=== PATIENT | female | born 1945 | race Caucasian/White ===

== ENCOUNTER 2024-03-08 20:21 | Emergency (ER) | payer MEDICARE, SELFPAY ==
[2024-03-08] VITALS (11 sets, daily range): BP systolic 115–143; BP diastolic 61–95; PULSE 71–83; RESP 20; TEMP 35.7; O2SAT 96–97; BMI 17.7
--- NOTE | 2024-03-08 20:41 | ED.WEAKNESS ---
HPI - Weakness General Time Seen by Provider: 20:41 Date Seen: 03/08/24 Chief complaint: Weakness Stated complaint: UTI, vomiting Time Seen by Provider: 03/08/24 20:41 Source: patient and RN notes reviewed Mode of arrival: ambulatory Limitations: no limitations History of Present Illness HPI Narrative: Patient is a very pleasant 78-year-old female with metastatic ovarian cancer who comes to the [facility] with her 2 daughters for evaluation regarding weakness. Patient was diagnosed yesterday with a UTI and started on Bactrim today. Daughters note the onset of some confusion on SundayMarch 04 with suspected UTI but unable to have a doctor's visit or urine sample until recently. Unfortunately Edelmira had episodes of vomiting yesterday and today. No known fever. Patient agrees that she has had loose stools but no davida diarrhea. Has had decreased p.o. intake and has been sleeping quite a bit especially today. Family states they usually go see doctors in the [facility] system but wanted to skip the long wait in the waiting room and thus came to [facility]. Last night patient was noted to have had urinary frequency with little production. Two doses of antibiotic were taken today. At this time patient denies difficulty breathing sore throat runny nose except when she is eating or any other respiratory difficulties. Patient's daughter states that the ovarian cancer did not respond well to chemo and thus last chemo was in January of this year. They note that there has been reports of metastases to lungs possibly bladder. Related Data Allergies Allergy/AdvReac Type Severity Reaction Status Date / Time No Known Drug Allergies Allergy Verified 03/08/24 20:48 Review of Systems Status of ROS: Reports: 10 or more systems reviewed and unremarkable except as noted in History and below Const: Reports: fever, chills, fatigue and malaise ENMT: Reports: nasal discharge (When eating); Denies: throat pain or nasal congestion Cardio: Denies: chest pain or shortness of breath with exertion Resp: Denies: shortness of breath or cough GI: Reports: vomiting; Denies: abdominal pain or diarrhea : Denies: painful urination or urinary frequency Endo: Reports: fatigue PFSH PFSH Social History Smoking Status: Unknown if ever smoked Exam Narrative: Exam Narrative: Patient is cachectic in appearance very pleasant. Answers questions appropriately alert and oriented. Very pale. EOM is full. Lips are dry. Neck is supple. Heart with a regular rate and rhythm. Lungs are clear. Abdomen is with some slight tenderness in the suprapubic area. Lower extremities without edema. Pedal pulses are intact. Moving all extremities. Const: Vital Signs, click to edit/add: Vital Signs - 24 hr 03/08/24 20:28 03/08/24 21:02 03/08/24 21:16 Temperature 96.2 F L Pulse Rate Pulse Rate [Left P ulse Oximeter] 83 Respiratory Rate 20 20 Blood Pressure 123/95 H 124/66 Blood Pressure [Ri ght Upper Arm] 143/76 H Pulse Oximetry 97 Oxygen Delivery Me thod Room Air Room Air 03/08/24 21:54 03/08/24 21:55 03/08/24 22:00 Temperature Pulse Rate 73 72 71 Pulse Rate [Left P ulse Oximeter] Respiratory Rate Blood Pressure 126/63 Blood Pressure [Ri ght Upper Arm] Pulse Oximetry 96 96 96 Oxygen Delivery Me thod 03/08/24 22:01 03/08/24 22:33 03/08/24 22:34 Temperature Pulse Rate 71 80 78 Pulse Rate [Left P ulse Oximeter] Respiratory Rate Blood Pressure 115/61 130/69 Blood Pressure [Ri ght Upper Arm] Pulse Oximetry 96 96 96 Oxygen Delivery Me thod 03/08/24 23:01 03/08/24 23:32 Temperature Pulse Rate Pulse Rate [Left P ulse Oximeter] Respiratory Rate Blood Pressure 119/64 121/69 Blood Pressure [Ri ght Upper Arm] Pulse Oximetry Oxygen Delivery Me thod Documenting provider has reviewed patient's vital signs: yes Course Course ED Course: Differential diagnosis includes but is not limited to UTI, urinary retention, sepsis, pyelonephritis. Will give 1 L normal saline through the port. Family is checking ID and sensitivities of the urinalysis from earlier this week. Will check lactate, blood cultures, CBC, comprehensive panel, CRP. Reevaluation(s) Reevaluation #1: Patient received 1 L of normal saline. Her hemoglobin has been returned at 7.6. Unfortunately family has been challenged with getting into my chart for results of her urine culture me as well as previous hemoglobins. We did speak briefly about a blood transfusion given the hemoglobin and her significant fatigue. I do not find evidence of sepsis, acute abdomen or infection tonight. Reevaluation #2: Our hospitalist was able to obtain some records for me. It appears that previous hemoglobin in the [facility] system was 8.5 in December. It had gotten as low as 7.1 in November and then patient did have a transfusion at that time. Her urine had a urinalysis but no culture available at this time. This was obtained through the [facility] system. Patient did receive Rocephin 1 g IV. Patient was type and screened. After extensive discussion regarding risks benefits with family and patient they have elected to receive transfusion. Informed consent was obtain. Will give 1 unit of type specific blood in the hopes that this does help patient's energy. Daughters do talk about hospice consultation. Do feel that they would like UTI treated and that they would like a transfusion at this time. I did talk about possibility of other etiology of increasing fatigue and that is progression of the disease possibly metastases to brain but I do not feel that we should do further imaging as this is not a reversible problem. They appear to agree with me. Vital Signs Vital signs: Initial Vital Signs Temperature 96.2 F L 03/08/24 20:28 Temperature Source Temporal Artery Scan 03/08/24 20:28 Pulse Rate 83 03/08/24 20:28 Pulse Rhythm Regular 03/08/24 20:28 Pulse Strength 3+ Normal 03/08/24 20:28 Respiratory Rate 20 03/08/24 20:28 Blood Pressure 143/76 H 03/08/24 20:28 Blood Pressure Mean 98 03/08/24 20:28 Pulse Oximetry 97 03/08/24 20:28 Oxygen Delivery Method Room Air 03/08/24 20:28 Vital Signs Temperature 96.2 F L 03/08/24 20:28 Pulse Rate 83 03/08/24 20:28 Respiratory Rate 20 03/08/24 20:28 Blood Pressure 143/76 H 03/08/24 20:28 Pulse Oximetry 97 03/08/24 20:28 Oxygen Delivery Method Room Air 03/08/24 20:28 Temperature 98.8 F 03/09/24 05:06 Pulse Rate 79 03/09/24 05:06 Respiratory Rate 20 03/09/24 05:06 Blood Pressure 145/78 H 03/09/24 05:06 Pulse Oximetry 95 03/09/24 05:06 Oxygen Delivery Method Room Air 03/08/24 21:02 Medications Administered Medications: Discontinued Medications Generic Name Dose Route Start Last Admin Trade Name Felicia PRN Reason Stop Dose Admin Heparin Sodium (Porcine) 500 unit 03/09/24 05:11 03/09/24 05:13 Heparin 500 Unit/5 Ml Syringe IVF 500 unit FLUSHPRN PRN Administration Sodium Chloride 1,000 mls @ 1,000 mls/hr 03/08/24 21:01 03/08/24 23:08 0.9 % Sodium Chloride 1000 Ml IV 03/08/24 22:00 Infused .Q1H GEE Infusion Ceftriaxone Sodium 1 gm/ 100 mls @ 200 mls/hr 03/08/24 23:06 03/08/24 23:52 Sodium Chloride IVPB 03/08/24 23:07 Infused ONCE ONE Infusion Sodium Chloride 250 ml 03/08/24 23:42 03/09/24 03:24 0.9 % Sodium Chloride 250 Ml IV 03/09/24 23:59 250 ml ONCE PRN Administration MDM - Weakness MDM Narrative Medical decision making narrative: 1. UTI-no evidence of sepsis which what had worried family. White count is normal and lactate is negative. While patient has an elevated CRP this is most likely route related to her ovarian cancer with metastases. 1 g of IV Rocephin given. Will have family continue with the Bactrim. We did collect urine sample here. Bladder scan was negative for any urinary retention. 2. Anemia-patient has dropped from 8 point 3-7.6 since December. Although likely a chronic process, transfusion may help patient's energy level and thus after discussion with family we elected to give 1 unit of blood. We did talk about the risks and the fact that there may be another process ongoing contributing to the confusion. At this time I do not find evidence of infection with lung sounds that are reassuring, no fever, no evidence of a bowel obstruction. 3. Metastatic ovarian cancer 4. Disposition-patient may be discharged home with family after transfusion. Medical Records Attestation: I reviewed the patient's medical records. Lab Data Attestation: I reviewed the patient's lab results. Labs: Lab Results 03/08/24 03/08/24 03/08/24 Range/Units 21:30 22:35 22:51 WBC 9.18 (4.50-11.00) K/uL RBC 2.61 L (4.00-5.20) m/uL Hgb 7.6 L* (12.0-16.0) gm/dL Hct 25.0 L (33.0-51.0) % MCV 96 (80-100) fL MCH 29 (26-34) pg MCHC 30 L (32-36) gm/dL RDW Coeff of Luisana 19.1 H (11.5-15.5) % Plt Count 497 H (140-440) K/uL Neut % (Auto) 83.4 H (42.0-72.0) % Lymph % (Auto) 6.9 L (20-44) % [place] % (Auto) 9.3 (0.0-11.0) % Eos % (Auto) 0.1 (0.0-7.0) % Baso % (Auto) 0.1 (0.0-3.0) % Neut # (Auto) 7.70 H (1.7-7.0) K/uL Lymph # (Auto) 0.60 L (0.90-2.90) K/uL [place] # (Auto) 0.90 (0.00-0.90) K/UL Eos # (Auto) 0.01 (0.00-0.50) K/uL Baso # (Auto) 0.01 (0.00-0.30) K/uL Abs Immat Gran (auto) 0.02 (0.00-0.30) K/uL Imm/Tot Granulo (auto) 0.2 % Sodium 136 (135-149) mmol/L Potassium 3.5 L (3.6-5.1) mmol/L Chloride 97 (96-114) mmol/L Carbon Dioxide 32 (20-32) mmol/L Anion Gap 7 (7-15) mEq/L BUN 29 (7-30) mg/dL Creatinine 0.7 (0.5-1.5) mg/dL Estimated Creat Clear 39.84 Estimated GFR 88 ml/min Glucose 89 (60-115) mg/dL Lactate 0.7 (0.5-1.9) mmol/L Calcium 8.8 (8.4-10.6) mg/dL C-Reactive Protein 23.7 H (0.5-1.0) mg/dL Urine Color Dark yellow (Yellow) Urine Appearance Clear (Clear) Urine pH 5.0 (5.0-8.5) Ur Specific [place] 1.025 (1.000-1.030) Urine Protein Trace A (Negative) Urine Glucose (UA) Negative (Negative) Urine Ketones 2+ A (Negative) Urine Blood Trace-intact A (Negative) Urine Nitrite Negative (Negative) Urine Bilirubin 2+ A (Negative) Urine Urobilinogen 0.2 (0.2-1.0) Ur Leukocyte Esterase Negative (Negative) Urine RBC 0-2 (0-2) Urine WBC 0-2 (0-5) Ur Squamous Epith Cells Moderate A (None-Few) Urine Bacteria Few A (None) Blood Type A Positive Antibody Screen NEGATIVE Crossmatch (AHG) See Detail Discharge Plan Discharge Clinical Impression: Weakness UTI (urinary tract infection) Qualifiers: Urinary tract infection type: acute cystitis Hematuria presence: without hematuria Qualified Code(s): N30.00 - Acute cystitis without hematuria Ovarian cancer Qualifiers: Laterality: bilateral Qualified Code(s): C56.3 - Malignant neoplasm of bilateral ovaries Patient Disposition: Home w/ Parent or Adult Condition: Improved Additional Instructions: Seek medical attention for fever, vomiting, worsening symptoms. Follow-up with your primary doctor for recheck. Follow Up/Referrals: Provider,Not a Local [Primary Care Provider] - Stand Alone Forms: Athlete Builder Info Instructions
[2024-03-08] MEDS: 0.9 % SODIUM CHLORIDE 1000 ml 1,000 ML IV (21:20)
[2024-03-08 21:39] LABS: Lactate Sepsis w/Reflex* 0.7 mmol/L (0.5-1.9)
[2024-03-08 21:41] LABS: Basophils Absolute Auto 0.01 K/uL (0.00-0.30); Basophils Percent Auto 0.1 % (0.0-3.0); Eosinophils Absolute Auto 0.01 K/uL (0.00-0.50); Eosinophils Percent Auto 0.1 % (0.0-7.0); Immature Granulocytes Abs Auto 0.02 K/uL (0.00-0.30); Immature Granulocytes Pct Auto 0.2 %; Lymphocytes Percent Auto 6.9 % (20-44); Mean Corpuscular HGB Conc 30 gm/dL (32-36); Mean Corpuscular Hemoglobin 29 pg (26-34); Mean Corpuscular Volume 96 fL (80-100); Monocytes Percent Auto 9.3 % (0.0-11.0); Neutrophils Percent Auto 83.4 % (42.0-72.0); Platelet Count* 497 K/uL (140-440); RDW Coefficient of Variation % 19.1 % (11.5-15.5); Red Blood Count 2.61 m/uL (4.00-5.20); White Blood Count* 9.18 K/uL (4.50-11.00)
[2024-03-08 21:46] LABS: Hemoglobin* 7.6 gm/dL (12.0-16.0); Slide Review Reflex No
[2024-03-08 21:55] LABS: Chloride* 97 mmol/L (96-114); Potassium* 3.5 mmol/L (3.6-5.1); Sodium* 136 mmol/L (135-149)
[2024-03-08 21:58] LABS: Creatinine* 0.7 mg/dL (0.5-1.5); Est. Creatinine Clearance* 39.84; Estimated Glomerular Filt Rate 88 ml/min
[2024-03-08 21:59] LABS: Anion Gap 7 mEq/L (7-15); Blood Urea Nitrogen* 29 mg/dL (7-30); Calcium* 8.8 mg/dL (8.4-10.6); Carbon Dioxide* 32 mmol/L (20-32); Glucose* 89 mg/dL (60-115)
--- OUTSIDE RECORDS SUMMARY | 2024-03-08 22:06 | XMS_ITS | Encounter Summary ---
Author Name Unknown Organization [facility] Address [address] [place] [address] Care Team Providers Care Edi Analyst Name Role Phone Tania Lisa MD Primary Care Provider Balta ornelas Encounter Details Date Type Department Care Team (Latest Contact Info) Description 02/07/1996 Orders Only Juma Montgomery, DDS [address] [place], [place] [id number] Social History Tobacco Use Types Packs/Day Years Used Date Smoking Tobacco: Never Assessed Sex and Gender Information Value Date Recorded Sex Assigned at Not on file Gender Identity Not on file Sexual Orientation Not on file documented as of this encounter Plan of Treatment Not on file documented as of this encounter Visit Diagnoses Not on filedocumented in this encounter Care Teams Edi Analyst Relationship Specialty Start Date End Date Tania Lisa MD PCP - General 08/26/14 documented as of this encounter
--- OUTSIDE RECORDS SUMMARY | 2024-03-08 22:06 | XMS_ITS | Encounter Summary ---
Author Name Unknown Organization [facility] Address [address] [place] [address] Care Team Providers Care Tool And Die Engineer Name Role Phone Tania Lisa MD Primary Care Provider Balta ornelas Encounter Details Date Type Department Care Team (Latest Contact Info) Description 04/30/1997 Orders Only Constantin Molina Social History Tobacco Use Types Packs/Day Years Used Date Smoking Tobacco: Never Assessed Sex and Gender Information Value Date Recorded Sex Assigned at Not on file Gender Identity Not on file Sexual Orientation Not on file documented as of this encounter Plan of Treatment Not on file documented as of this encounter Visit Diagnoses Not on filedocumented in this encounter Care Teams Tool And Die Engineer Relationship Specialty Start Date End Date Tania Lisa MD PCP - General 08/26/14 documented as of this encounter
--- OUTSIDE RECORDS SUMMARY | 2024-03-08 22:06 | XMS_ITS | Clinical Summary ---
Author Name Unknown Organization [facility] Address [address] [place] [address] Care Team Providers Care Plant Electrician Name Role Phone Tania Lisa MD Primary Care Provider Balta ornelas Source Comments You are receiving this document as you are listed as the primary care provider,follow-up provider, or the patient has been referred to you for consultation.This is in compliance with the Medicare and[facility] Hospital[facility] EHR Incentive Program,which states Providers who transition their patient to another setting of careor provider of care or refers their patient to another provider of care shouldprovide summary care record for each transition of care or referral. [facility] [place] Allergies No known active allergies Medications Medication Sig Dispensed Refills Start Date End Date Status atenolol (TENORMIN) 50 MG tablet Take 50 mg by mouth daily. Active calcium carbonate-vitamin D (CALCIUM 600 + D) 600-400 MG-UNIT tablet Take 1 Tablet by mouth daily. Active CHOLECALCIFEROL OR 25 mcg daily. Act evan HYDROcodone-acetamino phen (NORCO) 5-325 MG tabletIndications:Charla n of left upper extremity Take 1 Tablet by mouth every 6 hours as needed. 20 Tablet 07/07/2020 Active Active Problems Problem Noted Date Diagnosed Date Hypertension 11/19/2014 Social History Tobacco Use Types Packs/Day Years Used Date Smoking Tobacco: Never Smokeless Tobacco: Never Alcohol Use Standard Drinks/Week Comments No 0 (1 standard drink = 0.6 oz pur e alcohol) Sex and Gender Information Value Date Recorded Sex Assigned at Not on file Gender Identity Not on file Sexual Orientation Not on file Last Filed Vital Signs Vital Sign Reading Time Taken Comments Blood Pressure 125/67 08/29/2018 11:53 AM CDT Pulse 64 08/29/2018 11:53 AM CDT Temperature 36.8 ??C (98.3 ??F) 07/07/2020 5:30 PM CD T Respiratory Rate 16 08/29/2018 11:53 AM CDT Oxygen Saturation 96% 08/29/2018 11:53 AM CDT Inhaled Oxygen Concentration - - Weight 90.3 kg (199 lb) 07/07/2020 5:30 PM CDT Height 175.3 cm (5' 9) 07/07/2020 5:30 PM CDT Body Mass Index 29.39 07/07/2020 5:30 PM CDT Plan of Treatment Health Maintenance Due Date Last Done Comments Hep C Screening (Preventive Services) 1945 Adult Preventive Visit 1963 Zoster/Shingles (2 of 3) 10/28/2007 09/02/2007 Dexa 2010 Pneumococcal 65+ Yrs (2 - PPSV23 or PCV20) 03/28/2017 03/28/2016, 03/01/2011 DTaP/Tdap/Td (2 - Tdap) 03/01/2021 03/01/2011 COVID-19 Vaccine (3 - 2022-2 4 season) 2023 03/16/2021, 02/23/2021 Influenza (Season Ended) 2024 11/12/2019 HepA Aged Out No longer eligi ble based on patient's age to complete this topic HepB Aged Out No longer eligi ble based on patient's age to complete this topic Hib Aged Out No longer eligi ble based on patient's age to complete this topic IPV (Polio) Aged Out No longer eligi ble based on patient's age to complete this topic MCV4 Aged Out No longer eligi ble based on patient's age to complete this topic Medical Devices Implanted Type Area Broach Setter Device Identifier Shelf Expiration Date Model / Serial / Lot K-Wire Gd .062 - [id number] Implanted:Qty: 1 on 08/29/2018 by Obed Espinal DPM at [facility] Left: TOE [employer]aire Surg Instr 04/15/2022 [id number] / 0 / [id number] Description:First toe Advance Directives * Full Code (Latest Code Status on File) Date Activated Date Inactivated Comments 08/29/2018 9:38 AM 08/29/2018 2:22 PM Care Teams Plant Electrician Relationship Specialty Start Date End Date Tania Lisa MD PCP - General 08/26/14
--- OUTSIDE RECORDS SUMMARY | 2024-03-08 22:06 | XMS_ITS | Encounter Summary ---
Author Name Unknown Organization [facility] Address [address] [place] [address] Care Team Providers Care Natural Resource Manager Name Role Phone Tania Lisa MD Primary Care Provider Balta orenlas Encounter Details Date Type Department Care Team (Late st Contact Info) Description 11/13/2014 Orders Only [facility] [address] [place], [place] [address] Obed Espinal, DPM [address] [place] [address] Bunion Social History Tobacco Use Types Packs/Day Years Used Date Smoking Tobacco: Never Assessed Sex and Gender Information Value Date Recorded Sex Assigned at Not on file Gender Identity Not on file Sexual Orientation Not on file documented as of this encounter Plan of Treatment Not on file documented as of this encounter Visit Diagnoses Diagnosis Bunion documented in this encounter Care Teams Natural Resource Manager Relationship Specialty Start Date End Date Tania Lisa MD PCP - General 08/26/14 documented as of this encounter
--- OUTSIDE RECORDS SUMMARY | 2024-03-08 22:06 | XMS_ITS | Encounter Summary ---
Author Name Unknown Organization [facility] Address [address] [place] [address] Care Team Providers Care Support Merchandiser Name Role Phone Tania Lisa MD Primary Care Provider Balta ornelas Encounter Details Date Type Department Care Team (Latest Contact Info) Description 06/27/1999 Orders Only Juma Montgomery, DDS [address] [place], [place] [phone] Social History Tobacco Use Types Packs/Day Years Used Date Smoking Tobacco: Never Assessed Sex and Gender Information Value Date Recorded Sex Assigned at Not on file Gender Identity Not on file Sexual Orientation Not on file documented as of this encounter Plan of Treatment Not on file documented as of this encounter Visit Diagnoses Not on filedocumented in this encounter Care Teams Support Merchandiser Relationship Specialty Start Date End Date Tania Lisa MD PCP - General 08/26/14 documented as of this encounter
--- OUTSIDE RECORDS SUMMARY | 2024-03-08 22:07 | XMS_ITS | Encounter Summary ---
Author Name Unknown Organization [facility] Address [address] [place] [address] Care Team Providers Care Manager Wireless Name Role Phone Grabiel Crawford MD Primary Care Provider Lee Burns MD Unavailable Roni Paredes MD Unavailable Daisy Valiente MD Unavailable Reason for Visit * Reason Comments Labs Only Encounter Details Date Type Department Care Team (Late st Contact Info) Description 02/29/2024 1:00 PM CDT Infusion Therapy Visit [facility] [address] [place] [phone] Daisy Valiente MD [address] [place] [address] [address] [place] [address] Ovarian cancer, bilateral (H) Social History Tobacco Use Types Packs/Day Years Used Date Smoking Tobacco: Never Alcohol Use Standard Drinks/Week Comments No 0 (1 standard drink = 0.6 oz pur e alcohol) Adolescent Education Answer Date Record ed Getting School Help Needed Not on file 10/06 /2023 Sex and Gender Information Value Date Recorded Sex Assigned at Not on file Gender Identity Not on file Sexual Orientation Not on file documented as of this encounter Progress Notes * Yazan Harden RN - 02/29/2024 1:00 PM CDT Nursing Note: Edelmira Peña presents today for port labs. Patient seen by provider today: Yes: Bethany Web Design Specialist present during visit today: Not Applicable. Note: N/A. Intravenous Access: Labs drawn without difficulty. Implanted Port. Discharge Plan: Patient was sent home. Yazan Harden RN documented in this encounter Plan of Treatment Upcoming Encounters Date Type Department Care Team (Late st Contact Info) Description 03/10/2024 9:00 AM CDT Virtual Visit [facility] [address] [place] [phone] Daisy Valiente MD [address] [place] [address] [address] [place], [place] [address] Chana Curran, [address] [place] [address] 03/24/2024 8:50 AM CDT Office Visit [facility] [address] [facility] [address] [place] [phone] Roni Paredes MD [address] [facility] [address] [place], [place] [address] Ya Galdamez, CAREER SERVICES REPRESENTATIVE [address] [place], [place] [address] documented as of this encounter Procedures Procedure Name Priority Date/Time Associated Diagnosis Comments CA 125 Routine 02/29/2024 12:58 PM CDT Ovarian cancer, bilateral (H) documented in this encounter Results * (ABNORMAL) CA 125 (02/29/2024 12:58 PM CDT) CA 125 9,237(H) <=38 U/mL 03/01/2024 12:01 AM CDT [facility] Blood VASCULAR PORT AND CATHETER / Unknown IVAD (Port) / Unknown 02/29/2024 12:58 PM CDT 02/29/2024 1:06 PM CDT Narrative [facility] - 03/01/2024 12:01 AM CDT This result is obtained using the Dennis Elecsys CA 125 II method on the fran [id number] immunoassay analyzer. Results obtained with different assay methods or kits cannot be used interchangeably. Daisy Guidry MD LAB - BLOOD O RDERABLES [facility] [address] [facility], [address] [place] [phone] [place] documented in this encounter Visit Diagnoses Diagnosis Ovarian cancer, bilateral (H) documented in this encounter Administered Medications Inactive Administered Medications - up to 3 most recent administrations Medication Order MAR Action Action Date Dose Rate Site heparin 100 unit/mL injection 5 mL 5 mL, Intravenous, EVERY 8 HOURS, First dose on Sun02/29/24 at 1315 $Given 02/29/2024 1:04 PM CDT 5 mLs sodium chloride (PF) 0.9% PF flush 20 mL 20 mL, Intracatheter, EVERY 8 HOURS, First dose on Sun02/29/24 at 1315 $Given 02/29/2024 1:04 PM CDT 20 mLs documented in this encounter Care Teams Manager Wireless Relationship Specialty Start Date End Date Grabiel Crawford MD [address] [id number] PCP - General Family Medicine 08/13/23 Lee Burns MD [address] [place], [place] [address] Cardiovascular Disease 09/07/23 Roni Paredes MD [address] [facility] [address] [place], [place] [address] Assigned Heart and Vascular Provider 10/13/23 Daisy Valiente MD [address] [facility] [address] [place], [place] [phone] Gynecologic Oncology 02/26/24 documented as of this encounter
--- OUTSIDE RECORDS SUMMARY | 2024-03-08 22:07 | XMS_ITS | Encounter Summary ---
Author Name Unknown Organization [place] Address [address] [place] [address] Care Team Providers Care Banana Grader Name Role Phone Grabiel Crawford MD Primary Care Provider Lee Burns MD Unavailable [phone] Roni Paredes MD Unavailable Daisy Valiente MD Unavailable [phone] Encounter Details Date Type Department Care Team ([facility] Contact Info) Description 03/05/2024 MyC Medical Advice [facility] Virtual Care [address] [place] [address] [facility] Social History Tobacco Use Types Packs/Day Years Used Date Smoking Tobacco: Never Alcohol Use Standard Drinks/Week Comments No 0 (1 standard drink = 0.6 oz pur e alcohol) Adolescent Education Answer Date Record ed Getting School Help Needed Not on file 08/10 Sex and Gender Information Value Date Recorded Sex Assigned at Not on file Gender Identity Not on file Sexual Orientation Not on file documented as of this encounter Plan of Treatment Upcoming Encounters Date Type Department Care Team ([facility] Contact Info) Description 03/10/2024 9:00 AM CDT Virtual Visit [facility] [address] [place] [phone] Daisy Valiente MD [address] [place] [address] [phone] Chana Curran, GC [address] [place], [place] [phone] 03/24/2024 8:50 AM CDT Office Visit [facility] [place] [address] [facility] [address] [place] [phone] Roni Paredes MD [address] [facility] [address] [phone] Ya Galdamez, WINDOW GLAZIER HELPER [address] [place], [place] [phone] documented as of this encounter Visit Diagnoses Not on filedocumented in this encounter Care Teams Banana Grader Relationship Specialty Start Date End Date Grabiel Crawford MD [address] [place], [place] [address] PCP - General Family Medicine 08/13/23 Lee Burns MD [address] [place] [address] Cardiovascular Disease 09/07/23 Roni Paredes MD [address] [facility] [address] [id number] Assigned Heart and Vascular Provider 10/13/23 Daisy Valiente MD [address] [place] [address] [phone] Gynecologic Oncology 02/26/24 documented as of this encounter
--- OUTSIDE RECORDS SUMMARY | 2024-03-08 22:07 | XMS_ITS | Encounter Summary ---
Author Name Unknown Organization [place] Address [address] [facility] [place] [address] Care Team Providers Care Biology Specimen Technician Name Role Phone Grabiel Crawford MD Primary Care Provider Lee Burns MD Unavailable [phone] Roni Paredes MD Unavailable Daisy Valiente MD Unavailable Encounter Details Date Type Department Care Team (Latest Contact Info) Description 02/29/2024 Travel Social History Tobacco Use Types Packs/Day Years [...] Description 03/10/2024 9:00 AM CDT Virtual Visit [facility] [address] [place] [address] Daisy Valiente MD [address] [facility] [address] [place] [address] Chana Curran, GC [address] [place] [address] 03/24/2024 8:50 AM CDT Office Visit [facility] [place] [address] [facility] [address] [place] [phone] Roni Paredes MD [address] [facility] [address] [place], [place] [phone] Ya Galdamez, PRODUCT MANAGER E [employer] [address] [place] [phone] documented as of this encounter Visit Diagnoses Not on filedocumented in this encounter Care Teams Biology Specimen Technician Relationship Specialty Start Date End Date Grabiel Crawford MD [address] [facility] [place] [phone] PCP - General Family Medicine 08/13/23 Lee Burns MD [address] [place] [address] [phone] Cardiovascular Disease 09/07/23 Roni Paredes MD [address] [place] [address] [place] 117305 Assigned Heart and Vascular Provider 10/13/23 Daisy Valiente MD [address] [place] [address] Gynecologic Oncology 02/26/24 documented as of this encounter
--- OUTSIDE RECORDS SUMMARY | 2024-03-08 22:07 | XMS_ITS | Encounter Summary ---
Author Name Unknown Organization [place] Address [address] [facility] [place] [address] Care Team Providers Care Staff Development Nurse Name Role Phone Fay Crawford MD Primary Care Provider Lee Burns MD Unavailable Roni Paredes MD Unavailable Daisy Valiente MD Unavailable Reason for Referral * Consultation (Routine) - Pending Review Specialty Diagnoses / Procedures Referred By Contac t Referred To Contact Medical Oncology Diagnoses Ovarian cancer, bilateral (H) Daisy Valiente MD [address] [place] [address] Referral ID Status Reason Start Date Expiration Date V isits Requested Visits Authorized [id number] Pending Review 02/29/2024 02/28/2025 1 1 Question Answer My Clinical Question Is: Ovarian cancer, needs genetic testing If you have additional clinical questions which require a provider discussion, please call [phone]. Ask for the Chemo only medicine physician. Reason for Referral: Risk Management/Genetic Counseling Scheduling Instructions: [facility] will call you to coordinate your care as prescribed by the provider. If you don? t hear from a membership sales representative within 2 business days, please call Comments Please be aware that coverage of these services is subject to the terms and limitations of your health insurance plan. Call member services at your health plan with any benefit or coverage questions. [facility] will call you to coordinate your care as prescribed by the provider. If you don? t hear from a membership sales representative within 2 business days, please call Reason for Visit * Consultation (Urgent) - Pending Review Specialty Diagnoses / Procedures Referred By Contac t Referred To Contact Medical Oncology Diagnoses Peritoneal carcinomatosis (H) Fay Crawford MD [address] [place] [address] Referral ID Status Reason Start Date Expiration Date V isits Requested Visits Authorized [id number] Pending Review 02/26/2024 02/25/2025 1 1 Encounter Details Date Type Department Care Team (Late st Contact Info) Description 02/29/2024 11:00 AM CDT Oncology Visit [facility] [place] [address], [facility] [place] [address] [facility] [place] [phone] Daisy Valiente MD [address] [place] [address] Ovarian cancer, bilateral (H) (Primary Dx); Urine frequency Social History Tobacco Use Types Packs/Day Years Used Date Smoking Tobacco: Never Tobacco Cessation:Counseling Given: Not Answered Alcohol Use Standard Drinks/Week Comments No 0 (1 standard drink = 0.6 oz pur e alcohol) Adolescent Education Answer Date Record ed Getting School Help Needed Not on file 08/10 Sex and Gender Information Value Date Recorded Sex Assigned at Not on file Gender Identity Not on file Sexual Orientation Not on file documented as of this encounter Last Filed Vital Signs Vital Sign Reading Time Taken Comments Blood Pressure 114/71 02/29/2024 11:06 AM CDT Pulse 97 02/29/2024 11:06 AM CDT Temperature 36.4 ??C (97.6 ??F) 02/29/2024 11:06 AM C DT Respiratory Rate 16 02/29/2024 11:06 AM CDT Oxygen Saturation 97% 02/29/2024 11:06 AM CDT Inhaled Oxygen Concentration - - Weight 57.2 kg (126 lb 3.2 oz) 02/29/2024 11:06 AM CDT Height - - Body Mass Index 18.64 11/26/2023 10:20 AM TRAVOGRAPH OPERATOR documented in this encounter Progress Notes * Daisy Valiente MD - 02/29/2024 11:[address] Dr. Fay Crawford MD [address] [place] [address] RE: Edelmira Peña : 1945 [place]: Feb 29, [address] Fay Crawford: I had the pleasure of seeing your patient Edelmira Peña here at the Gynecologic Cancer Clinic at the [facility] on 02/29/2024. 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 Given these findings she was subsequently sent to the Gynecologic Cancer Clinic for new patient consultation. She is accompanied today by two of her daughters. She is here for a second opinion regarding her cancer care. Overall feels okay. Low energy, no appetite, having diarrhea, mild nausea, no vomiting. Has been trying a low sugar diet and ivermectin andhas also been seen at [facility]. Not interested in eating meat, overall wants to know whatdiet she should be eating. Considers herself an optimist. Had to move bed to lower level of house given difficulty with climbing the stairs, did fall two days ago when trying to sit in the kitchen but did not hit her head and the pain in her arm has improved. Does intermittently use a walker. Stopped driving two weeks ago. 08/28/23-11/09/23: Cycle #1-4 carboplatin, paclitaxel, bevacizumab 12/05/23: Exploratory laparotomy, total abdominal hysterectomy, omentectomy, bladder stripping, tumor debulking with Dr Sophie Giraldo. Per operative report-At the end of surgery the disease remaining included the miliary disease along the entire length of the small bowel mesentery, which was unresectable Pathology: High grade serous ovarian carcinoma 01/09/24-02/20/24: Cycle #5-7 carboplatin, paclitaxel, bevacizumab 02/11/24: CT C/A/P (personally reviewed): 1. New left upper lobe nodule since comparison. 2. Increased size of the capsular implants around the liver. 3. Previously seen omental infiltration surgicallyabsent. 4. Small amount of abdominal free fluid improved from previous. 5. Improved bilateral effusions. 6. New mildly dilated small bowel loops which may be related to early or partial small bowel obstruction. CARIS Testing from 12/05/23 ER+/[place] negative PDL-1 positive, CPS 5 Her2 IHC negative HRD negative, score 12 MMR proficient/MS stable TMB low FOLR negative Obstetrics and Gynecology History: Past Medical History: Past Medical History: Diagnosis Date Gastroesophageal reflux disease without esophagitis Hypertension Ovarian cancer, bilateral (H) Past Surgical History: Past Surgical History: Procedure Laterality Date CHOLECYSTECTOMY COLONOSCOPY HYSTERECTOMY TOTAL ABD, DAVE SALPINGO-OOPHORECTOMY, NODE DISSECTION, TUMOR DEBULKING, COMBINED IR CHEST PORT PLACEMENT > 5 YRS OF AGE 1008/21/2023 IR PARACENTESIS 08/21/2023 IR PARACENTESIS 07/31/2023 IR PARACENTESIS 08/07/2023 ORTHOPEDIC SURGERY right hi replacement in 89 and 5 PHACOEMULSIFICATION CLEAR CORNEA WITH DELUXE INTRAOCULAR LENS IMPLANT 10/16/2011 Procedure:PHACOEMULSIFICATION CLEAR CORNEA WITH DELUXE INTRAOCULAR LENS IMPLANT; RIGHT PHACOEMULSIFICATION CLEAR CORNEA WITH TECNIS MULTIFOCAL INTRAOCULAR LENS IMPLANT ; Surgeon:JUAN R ROA; Location:[facility] PHACOEMULSIFICATION CLEAR CORNEA WITH DELUXE INTRAOCULAR LENS IMPLANT 12/15/2013 Procedure: PHACOEMULSIFICATION CLEAR CORNEA WITH DELUXE INTRAOCULAR LENS IMPLANT; LEFT PHACOEMULSIFICATION CLEAR CORNEA WITH DELUXE TECNIS INTRAOCULAR LENS IMPLANT ; Surgeon: Juan R Roa MD; Location: [facility] Social History: Lives with in [place] with Fredrick, feels safe at home. Does not work. Has previously been DNR but she does currently desire resuscitation. Would like chest compression and a breathing tube. Does not have an advanced directive on file and would like her daughters and/or to be her POA. Family History: The patient's family history is significant for. History reviewed. No pertinent family history. Physical Exam: BP 114/71 (BP Location: Right arm, Patient Position: Sitting, Cuff Size: Adult Regular) Pulse 97 Temp 97.6 ??F (36.4 ??C) (Oral) Resp 16 Wt 57.2 kg (126 lb 3.2 oz) SpO2 97% BMI 18.64 kg/m?? GENERAL: alert and no distress EYES: Eyes grossly normal to inspection. No discharge or erythema, or obvious scleral/conjunctival abnormalities. RESP: No audible wheeze, cough, or visible cyanosis. SKIN: Visible skin clear. No significant rash, abnormal pigmentation or lesions. NEURO: Cranial nerves grossly intact. Mentation and speech appropriate for age. PSYCH: Appropriate affect, tone, and pace of words Labs: CA125 = [id number] Assessment: Edelmira Peña is a 78 year old woman with a diagnosis of advanced, [place] refractory ovarian cancer. A total of 60 minutes was spent on patient care today. Plan: 1.) Advanced, [place] refractory ovarian cancer-we discussed [place] refractory disease prognosisand natural course. We discussed that her cancer is not curable and that there is a relatively low response rate for any potential treatment given her [place] refractory disease. We discussed options for treatment which are non-[place] based given her [place] refractory disease including doxil, topotecan, gemcitabine and cytoxan. Given her CARIS testing shows a PDL-1 CPS of 5, we also discussed the option of cytoxan/avastin/pembrolizumab. We also discussed clinical trials but the fact that we do not have any Phase III trials open at this time for which she is eligible. We did, however discuss the DTC clinic at the [place] and she is interested in being evaluated there for potential clinical trials in the future should this next line of treatment not be effective. We also discussed the option of proceeding with a palliative/hospice approach. She is not wanting to make a decision atthis time but would prefer to go home to discuss options further with her daughters. She was given the contact information for the clinic and will call if she would like to proceed with treatment through our clinic. 2.) Genetic risk factors were assessed and the patient has not had genetic testing and this will bearranged 3.) Labs and/or tests ordered include: Genetic counseling, CA125. 4.) Health maintenance issues addressed today include pt no longer needs screening exams given her advanced ovarian cancer. Thank you for allowing us to participate in the care of your patient. Sincerely, Daisy Sims MD Gynecologic Oncology [facility] FAY BARNES * Hillary Ramos CMA - 02/29/2024 11:00 AM CDT Oncology Rooming Note February 29, 2024 11:08 AM Edelmira Peña is a 78 year old female who presents for: No chief complaint on file. Initial Vitals: BP 114/71 (BP Location: Right arm, Patient Position: Sitting, Cuff Size: Adult Regular) Pulse 97 Temp 97.6 ??F (36.4 ??C) (Oral) Resp 16 Wt 57.2 kg (126 lb 3.2 oz) SpO2 97% BMI 18.64 kg/m?? Estimated body mass index is 18.64 kg/m?? as calculated from the following: Height as of 11/26/23: 1.753 m (5' 9). Weight as of this encounter: 57.2 kg (126 lb 3.2 oz). Body surface area is 1.67 meters squared. Severe Pain (7) Comment: Data Unavailable No LMP recorded. Patient is postmenopausal. Allergies reviewed: Yes Medications reviewed: Yes Medications: Medication refills not needed today. Pharmacy name entered into [facility]: [facility] - [place], [place] - [address] [id number] - [place], [place] - [address] [address] [facility] Frailty Screening: Is the patient here for a new oncology consult visit in cancer care? 1. Yes. Over the past month, have you experienced difficulty or required a caregiver to assist with: 1. Balance, walking or general mobility (including any falls)? YES 2. Completion of self-care tasks such as bathing, dressing, toileting, grooming/hygiene? YES 3. Concentration or memory that affects your daily life? YES Clinical concerns: no Kaur Ramos CMA documented in this encounter Miscellaneous Notes * Addendum Note - Ronna Briones RN - 02/29/2024 11:00 AM CDTAddended by: RONNA BRIONES on: 03/06/2024 10:45 AM Modules accepted: Orders documented in this encounter Plan of Treatment Upcoming Encounters Date Type Department Care Team (Late st Contact Info) Description 03/10/2024 9:00 AM CDT Virtual Visit [facility] [address] [facility] [place] [address] Daisy Valiente MD [address] [place] [address] [address] [place], [place] [address] Chana Curran, [address] [place], [place] [address] 03/24/2024 8:50 AM CDT Office Visit [facility] [address] [facility] [address] [place] [address] Roni Paredes MD [address] [facility] [address] [place], [place] [address] Ya Galdamez, CFD ENGINEER [address] [place], [place] [phone] Scheduled Orders Name Type Priority Associated Diagnoses Orde r Schedule UA with Microscopic reflex to Culture - lab collect Lab Routine Ovarian cancer, bilateral (H) Urine frequency Expected: 03/06/2024 (Approximate), Expires: 03/06/2025 Scheduled Referrals Name Type Priority Associated Diagnoses Orde r Schedule Adult Oncology/Hematology Submarine Element Coordinator Referral Referral Routine: Next available opening Ovarian cancer, bilateral (H) Expected: 02/29/2024 (Approximate), Expires: 02/26/2025 documented as of this encounter Results * (ABNORMAL) CA 125 [...] LAB - BLOOD O RDERABLES [facility] Core Lab [address] [facility], Room [address] [phone] documented in this encounter Visit Diagnoses Diagnosis Ovarian cancer, bilateral (H)- Primary Urine frequency Urinary frequency documented in this encounter Care Teams Staff Development Nurse Relationship Specialty Start Date End Date Fay Crawford MD [address] [phone] PCP - General Family Medicine 08/13/23 Lee Burns MD [address] [place] [phone] Cardiovascular Disease 09/07/23 Roni Paredes MD [address] [place] [address] [place] [phone] Assigned Heart and Vascular Provider 10/13/23 Daisy Valiente MD [address] [place] [address] [phone] Gynecologic Oncology 02/26/24 documented as of this encounter
--- OUTSIDE RECORDS SUMMARY | 2024-03-08 22:07 | XMS_ITS | Referral Summary ---
Author Name Unknown Organization [facility] Address [address] [facility] [address] Care Team Providers Care Oracle Erp Developer Name Role Phone Fay Crawford MD Primary Care Provider Lee Burns MD Unavailable Roni Paredes MD Unavailable Daisy Valiente MD Unavailable Encounters Date Type Department Care Team Description 03/06/2024 Travel 03/06/2024 Orders Only [facility] Service Line [facility] [place] [address] Daisy Valiente MD Ovarian cancer, bilateral (H) (Primary Dx) 03/05/2024 MyC Medical Advice [facility] Care [address] [place] [address] Katie Buenrostro 02/29/2024 1:00 PM CDT Infusion Therapy Visit [facility] [address] [place] [phone] Daisy Valiente MD Ovarian cancer, bilateral (H) 02/29/2024 Travel 02/29/2024 PRE VISIT [facility] [address], [address] [facility] [place] [address] [place] [phone] Daisy Valiente MD *-*INCOMING RECORDS*-* (Peritoneal carcinomatosis (H) [C78.6]) 02/29/2024 11:00 AM CDT Oncology Visit [facility] [address], [address] [facility] [place] [address] [place] [phone] Daisy Valiente MD Ovarian cancer, bilateral (H) (Primary Dx); Urine frequency 02/26/2024 Transcribe Orders GENERIC EXTERNAL DATA DEPARTMENT Provider, Generic External Data Peritoneal carcinomatosis (H) (Primary Dx) 02/11/2024 10:59 AM CDT - 02/11/2024 11:59 PM CDT Hospital Encounter [facility] [address] [address] Maty Hernandez APRN DIESEL ENGINE I PIPE FITTER Non-Fv Credentialed Provider, Radiology 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 Active omeprazole (PRILOSEC) [address] capsule Take 40 mg by mouth daily Active acetaminophen (TYLENOL) 500 MG tablet Take 500-1,000 mg by mouth every 6 hours as needed for mild pain Active lidocaine-prilocain e (EMLA) 2.5-2.5 % external cream Apply topically as needed for moderate pain To port an hour before chemo Active OLANZapine (ZYPREXA) 2.5 MG tablet Take 2.5 mg by mouth at bedtime Star the night before chemo and continue for 3 nights after chemo Active ondansetron (ZOFRAN) 8 MG tablet Take 8 mg by mouth every 8 hours as needed for nausea Active prochlorperazine (COMPAZINE) 10 MG tablet Take 10 mg by mouth every 6 hours as needed for nausea or vomiting Active UNKNOWN TO PATIENT Chemotherapy in clinic Active loperamide (IMODIUM) 2 MG capsuleIndications: Diarrhea, unspecified type Take 1 capsule (2 mg) by mouth 4 times daily as needed for diarrhea 30 capsule 09/07/2023 Active mirtazapine (REMERON) 15 MG tablet TAKE ONE TABLET BY MOUTH ONE TIME DAILY* 09/14/2023 Active loratadine (CLARITIN) 10 MG tablet Take 10 mg by mouth daily FOR 3 DAYS AFTER CHEMO Active metoprolol tartrate (LOPRESSOR) 50 MG tabletIndications:A trial fibrillation, unspecified type (H) Take 1 tablet (50 mg) by mouth 2 times daily 60 tablet 10/02/2023 Active apixaban ANTICOAGULANT (ELIQUIS ANTICOAGULANT) 5 MG tablet Take 5 mg by mouth 2 times daily Active furosemide (LASIX) 20 MG tabletIndications:A cute congestive heart failure, unspecified heart failure type (H) Take 0.5 tablets (10 mg) by mouth daily 45 tablet 3 10/12/2023 Active amiodarone (PACERONE) 200 MG tabletIndications:A trial fibrillation, unspecified type (H) Take 1 tablet (200 mg) by mouth daily 90 tablet 1 11/08/2023 Active magnesium oxide (MAG-OX) 400 MG tabletIndications:A cute congestive heart failure, unspecified heart failure type (H),Atrial fibrillation, unspecified type (H) Take 1 tablet (400 mg) by mouth 2 times daily 30 tablet 11/29/2023 Active oxyCODONE (ROXICODONE) 5 MG tabletIndications:O varian cancer, bilateral (H) Take 1 tablet (5 mg) by mouth every 6 hours as needed for pain 30 tablet 03/06/2024 4 Active Active Problems Problem Noted Date Diagnosed Date Multinodular goiter 09/30/2023 Thyroiditis 09/30/2023 Overview: Euthyroid, not on medication. Pleural effusion 09/30/2023 General weakness 09/30/2023 Malignant ascites (H28) 09/30/2023 Bilateral leg edema 09/30/2023 Fall, initial encounter 09/30/2023 Malignant neoplasm of ovary, unspecified lateral ity 09/30/2023 Other elevated white blood cell (WBC) count 09/06 Anemia, unspecified type 09/30/2023 Acute congestive heart failu re, unspecified heart failure type 09/30/2023 Dehydration 09/02/2023 Hyponatremia 09/02/2023 Chemotherapy-induced neutropenia (H24) Diarrhea, unspecified type 09/02/2023 Dyslipidemia 09/25/2019 Aortic calcification (H24) 08/03/2017 Benign essential hypertension 03/27/2016 Gastroesophageal reflux disease 03/27/2016 Social History Tobacco Use Types Packs/Day Years [...] 3.2 oz) 02/29/2024 11:06 AM CDT Height 175.3 cm (5' 9) 11/26/2023 10:20 AM MARRIAGE AND FAMILY THERAPIST Body Mass Index 18.64 11/26/2023 10:20 AM MARRIAGE AND FAMILY THERAPIST Plan of Treatment Upcoming Encounters Date Type Department Care Team (Late st Contact Info) Description 03/10/2024 9:00 AM CDT Virtual Visit [facility] [address] [facility] [place] [address] Daisy Valiente MD 6 [facility] [address] [place], [place] [phone] Chana Curran, [address] [place], [place] [phone] 03/24/2024 8:50 AM CDT Office Visit [facility] [place] [address] [facility] [address] [place] [address] Roni Paredes MD [address] [facility] [address] [place], [place] [phone] Ya Galdamez, DIESEL ENGINE I PIPE FITTER [address] [place], [place] [address] Medical Devices Implanted Type Area Plasma Center Technician Device Identifier Shelf Expiration Date Model / Serial / Lot Powerport Clearvue Slim- 3 Implanted:Qty: 1 on 08/21/2023 by Gil Martinez MD Port Right: Chest Wall [employer]ES 05/04/2025 / / [id number] Eye Imp Iol [place] Pcl Deluxe Technis 1pc Zmb00 20.0 Implanted:Qty: 1 on 10/16/2011 at [facility] Right: Eye [employer] OPT 01/02/2014 ZMB00 20.0 / [id number] / Eye Imp Iol James Pcl Deluxe Technis 1pc Zmb00 20.0 Implanted:Qty: 1 on 12/15/2013 by Juan R Roa MD at [facility] Left: Eye [employer] OPT 06/03/2017 ZMB00 20.0 / [id number] / Procedures Procedure Name Priority Date/Time Associated Diagnosis Comments CA 125 Routine 02/29/2024 12:58 PM CDT Ovarian cancer, bilateral (H) CT CHEST/ABDOMEN/PELVIS W CONTRAST STAT 02/11/2024 11:45 AM CDT 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) ISTAT CREATININE POCT Routine 02/11/2024 11:34 AM CDT LAB RESULT - HIM SCAN 01/30/2024 12:00 AM CDT BASIC METABOLIC PANEL Routine 10/30/2023 12:17 PM MARRIAGE AND FAMILY THERAPIST Acute congestive heart failure, unspecified heart failure type (H) CBC WITH PLATELETS & DIFFERENTIAL Routine 10/03/2023 6:07 AM MARRIAGE AND FAMILY THERAPIST TSH WITH FREE T4 REFLEX STAT 09/30/2023 12:35 PM MARRIAGE AND FAMILY THERAPIST COMPREHENSIVE METABOLIC PANEL STAT 09/30/2023 10:19 AM MARRIAGE AND FAMILY THERAPIST from Last 3 Months or Most Recently Relevant to Health Maintenance Results * (ABNORMAL) CA 125 (02/29/2024 12:58 [...] LAB - BLOOD O RDERABLES [facility] [place] [facility] [address] [facility], Room [address] [place] [phone] * CT Chest/Abdomen/Pelvis w Contrast (02/11/2024 11:45 AM CDT) Anatomical Region Laterality Modality Abdomen/Pelvis, Chest, SUBRA D CT BODY, UMP CT CHEST, UMP CT ABDOMEN PELVIS, RAD CT Computed Tomography Impressions 02/11/2024 1:48 PM CDT IMPRESSION: 1. ??New left upper lobe nodule since comparison. 2. ??Increased size of the capsular implants around the liver. 3. ??Previously seen omental infiltration surgically absent. 4. ??Small amount of abdominal free fluid improved from previous. 5. ??Improved bilateral effusions. 6. ??New mildly dilated small bowel loops which may be related to early or partial small bowel obstruction. FAY CANALES MD Narrative 02/11/2024 1:[address] CHEST/ABDOMEN/PELVIS WITH CONTRAST February 11, 2024 11:45 AM CLINICAL HISTORY: Known fallopian tube cancer. Now status post neoadjuvant chemotherapy, surgery, and two cycles adjuvant. Assess for disease status. Compare to previous from 10/27/2023. 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 TECHNIQUE: CT scan of the chest, abdomen, and pelvis was performed following injection of IV contrast. Multiplanar reformats were obtained. Dose reduction techniques were used. CONTRAST: 77mL Isovue-370. COMPARISON: November 02, 2023. FINDINGS: LUNGS AND PLEURA: Small to moderate left and minimal right effusions with associated probable compressive atelectasis. New 6 mm pleural-based nodule anteriorly in the left upper lobe image 166 series 4. MEDIASTINUM/AXILLAE: No lymphadenopathy. No thoracic aortic aneurysms. Stable thyroid nodules. CORONARY ARTERY CALCIFICATIONS: Moderate. HEPATOBILIARY: Capsular implants seen best anteriorly near the diaphragm as well as around the falciform ligament appear worse, one anteriorly from the left lobe now measures 6 mm in thickness previously 3 mm. No significant intrahepatic mass or bile duct dilatation. No calcified gallstones. PANCREAS: No significant mass, duct dilatation, or inflammatory change. SPLEEN: Normal size. Cystic area lateral to the spleen appears unchanged in size measuring 1.4 cm. ADRENAL GLANDS: No significant nodules. KIDNEYS/BLADDER: No significant mass, stones, or hydronephrosis. BOWEL: A few mildly dilated small bowel loops are evident which may be related to early or partial small bowel obstruction. PELVIC ORGANS: No pelvic masses. ADDITIONAL FINDINGS: Previously seen omental infiltration is no longer demonstrated. Trace free fluid. MUSCULOSKELETAL: No frankly destructive bony lesions. Procedure Note Fay Canales MD - 02/11/2024 CT CHEST/ABDOMEN/PELVIS WITH CONTRAST February 11, 2024 11:45 AM CLINICAL HISTORY: Known fallopian tube cancer. Now status post neoadjuvant chemotherapy, surgery, and two cycles adjuvant. Assess for disease status. Compare to previous from 10/27/2023. 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 TECHNIQUE: CT scan of the chest, abdomen, and pelvis was performed following injection of IV contrast. Multiplanar reformats were obtained. Dose reduction techniques were used. CONTRAST: 77mL Isovue-370. COMPARISON: November 02, 2023. FINDINGS: LUNGS AND PLEURA: Small to moderate left and minimal right effusions with associated probable compressive atelectasis. New 6 mm pleural-based nodule anteriorly in the left upper lobe image 166 series 4. MEDIASTINUM/AXILLAE: No lymphadenopathy. No thoracic aortic aneurysms. Stable thyroid nodules. CORONARY ARTERY CALCIFICATIONS: Moderate. HEPATOBILIARY: Capsular implants seen best anteriorly near the diaphragm as well as around the falciform ligament appear worse, one anteriorly from the left lobe now measures 6 mm in thickness previously 3 mm. No significant intrahepatic mass or bile duct dilatation. No calcified gallstones. PANCREAS: No significant mass, duct dilatation, or inflammatory change. SPLEEN: Normal size. Cystic area lateral to the spleen appears unchanged in size measuring 1.4 cm. ADRENAL GLANDS: No significant nodules. KIDNEYS/BLADDER: No significant mass, stones, or hydronephrosis. BOWEL: A few mildly dilated small bowel loops are evident which may be related to early or partial small bowel obstruction. PELVIC ORGANS: No pelvic masses. ADDITIONAL FINDINGS: Previously seen omental infiltration is no longer demonstrated. Trace free fluid. MUSCULOSKELETAL: No frankly destructive bony lesions. IMPRESSION: 1. New left upper lobe nodule since comparison. 2. Increased size of the capsular implants around the liver. 3. Previously seen omental infiltration surgically absent. 4. Small amount of abdominal free fluid improved from previous. 5. Improved bilateral effusions. 6. New mildly dilated small bowel loops which may be related to early or partial small bowel obstruction. FAY CANALES MD Maty Hernandez TRAY SERVER DIESEL ENGINE I PIPE FITTER IMG CT ORDERA BLES * (ABNORMAL) Creatinine POCT (02/11/2024 11:34 AM CDT) Creatinine POCT 1.0 0.5 - 1.0 mg/dL 02/11/2024 11:41 AM CDT LABORATORY POC GFR, ESTIMATED POCT 57(L) >60 mL/min/1.7 3m2 02/11/2024 11:41 AM CDT LABORATORY POC Blood, venous BLOOD SPECIMEN / Unknown 02/11/2024 11:34 AM CDT 02/11/2024 11:41 AM CDT Radiology Non-Fv Credentialed Provider L AB - BEAKER POCT LABORATORY POC [facility] [address] floor, [address] [place] [address] * Lab Result - HIM Scan (01/30/2024 12:00 AM CDT) 01/30/2024 Provider Outside NON-BEAKER LAB TE STING * (ABNORMAL) Basic metabolic panel (10/30/2023 12:17 PM MARRIAGE AND FAMILY THERAPIST) Pathologist [facility] Sodium 138 135 - 145 mmol/L 10/30/2023 1:05 PM [facility] Comment:Reference intervals for this test were updated on 07/31/2023 to more accurately reflect our healthy population. There may be differences in the flagging of prior results with similar values performed with this method. Interpretation of those prior results can be made in the context of the updated reference intervals. Potassium 3.9 3.4 - 5.3 mmol/L 10/30/2023 1:05 PM [facility] Chloride 98 98 - 107 mmol/L 10/30/2023 1:05 PM [facility] Carbon Dioxide (CO2) 32(H) 22 - 29 mmol/L 10/30/2023 1:05 PM [facility] Anion Gap 8 7 - 15 mmol/L 10/30/2023 1:05 PM MARRIAGE AND FAMILY THERAPIST LABORATORY Urea Nitrogen 11.8 8.0 - 23.0 mg/dL 10/30/2023 1:05 PM [facility] Creatinine 0.84 0.51 - 0.95 mg/dL 10/30/2023 1:05 PM [facility] GFR Estimate 71 >60 mL/min/1. 73m2 10/30/2023 1:05 PM [facility] Calcium 8.7(L) 8.8 - 10.2 mg/dL 10/30/2023 1:05 PM [facility] Glucose 88 70 - 99 mg/dL 10/30/2023 1:05 PM [facility] Blood BLOOD SPECIMEN / Unknown Venipuncture / Unknown 10/30/2023 12:17 PM MARRIAGE AND FAMILY THERAPIST 10/30/2023 12:17 PM MARRIAGE AND FAMILY THERAPIST Roni Paredes MD LAB - BLOOD ORDERABL ES [facility] [address] floor, [address] [place] [address], [facility] [phone] * TSH with free T4 reflex (09/30/2023 12:35 PM MARRIAGE AND FAMILY THERAPIST) TSH 1.87 0.30 - 4.20 uIU/mL 09/30/2023 1:48 PM MARRIAGE AND FAMILY THERAPIST LABORATORY Blood BLOOD SPECIMEN / Unknown Venipuncture / Unknown 09/30/2023 12:35 PM MARRIAGE AND FAMILY THERAPIST 09/30/2023 12:37 PM MARRIAGE AND FAMILY THERAPIST Matilde Lisa PA-C LAB - BLOOD AVANI LOZANO [facility] [address] floor, [address] [place] [address], [facility] [phone] * (ABNORMAL) Comprehensive metabolic panel (09/30/2023 10:19 AM MARRIAGE AND FAMILY THERAPIST) Sodium 141 135 - 145 mmol/L 09/30/2023 11:39 AM MARRIAGE AND FAMILY THERAPIST LABORATORY Comment:Reference intervals for this test were updated on 07/31/2023 to more accurately reflect our healthy population. There may be differences in the flagging of prior results with similar values performed with this method. Interpretation of those prior results can be made in the context of the updated reference intervals. Potassium 3.8 3.4 - 5.3 mmol/L 09/30/2023 11:39 AM [facility] Carbon Dioxide (CO2) 28 22 - 29 mmol/L 09/30/2023 11:39 AM [facility] Anion Gap 10 7 - 15 mmol/L 09/30/2023 11:39 AM [facility] Urea Nitrogen 14.7 8.0 - 23.0 mg/dL 09/30/2023 11:39 AM [facility] Creatinine 0.72 0.51 - 0.95 mg/dL 09/30/2023 11:39 AM [facility] GFR Estimate 86 >60 mL/min/1. 73m2 09/30/2023 11:39 AM [facility] Calcium 7.8(L) 8.8 - 10.2 mg/dL 09/30/2023 11:39 AM [facility] Chloride 103 98 - 107 mmol/L 09/30/2023 11:39 AM [facility] Glucose 85 70 - 99 mg/dL 09/30/2023 11:39 AM [facility] Alkaline Phosphatase 125 40 - 150 U/L 09/30/2023 11:39 AM [facility] Comment:Reference intervals for this test were updated on 09/18/2023 to more accurately reflect our healthy population. There may be differences in the flagging of prior results with similar values performed with this method. Interpretation of those prior results can be made in the context of the updated reference intervals. AST 34 0 - 45 U/L 09/30/2023 11:39 AM [facility] Comment:Reference intervals for this test were updated on 04/16/2023 to more accurately reflect our healthy population. There may be differences in the flagging of prior results with similar values performed with this method. Interpretation of those prior results can be made in the context of the updated reference intervals. ALT 21 0 - 50 U/L 09/30/2023 11:39 AM [facility] Comment:Reference intervals for this test were updated on 04/16/2023 to more accurately reflect our healthy population. There may be differences in the flagging of prior results with similar values performed with this method. Interpretation of those prior results can be made in the context of the updated reference intervals. Protein Total 5.3(L) 6.4 - 8.3 g/dL 09/30/2023 11:39 AM MARRIAGE AND FAMILY THERAPIST LABORATORY Albumin 2.6(L) 3.5 - 5.2 g/dL 09/30/2023 11:39 AM MARRIAGE AND FAMILY THERAPIST LABORATORY Bilirubin Total 0.2 <=1.2 mg/dL 09/30/2023 11:39 AM MARRIAGE AND FAMILY THERAPIST LABORATORY Blood VENOUS LINE / Unknown Venipuncture / Unknown 09/30/2023 10:19 AM MARRIAGE AND FAMILY THERAPIST 09/30/2023 10:25 AM MARRIAGE AND FAMILY THERAPIST Denise Nunes MD LAB - BLOOD ORDERAB LES LABORATORY [facility] [address] 1[address] floor, [address] [place] [address], [facility] [phone] from Last 3 Months or Most Recently Relevant to Health Maintenance Advance Directives For more information, please contact: [phone] * No CPR- Do NOT Intubate (Latest Code Status on File) Date Activated Date Inactivated Comments 09/30/2023 3:11 PM 10/05/2023 6:41 PM NO basic or advanced life-sustaining interventions are performed Question Answer Comments Code status determined by: Discussion with patie nt/ legal decision maker * Full Code Date Activated Date Inactivated Comments 09/02/2023 10:01 PM 09/07/2023 5:13 PM All basic and advanced life-sustaining interventions are performed as appropriate Question Answer Comments Code status determined by: Other (please alexander t) Care Teams Oracle Erp Developer Relationship Specialty Start Date End Date Fay Crawford MD [address] [id number] PCP - General Family Medicine 08/13/23 Lee Burns MD [address] [place], [place] [address] Cardiovascular Disease 09/07/23 Roni Paredes MD [address] [place] [id number] Assigned Heart and Vascular Provider 10/13/23 Daisy Valiente MD 6 [facility] [address] [place] [address] Gynecologic Oncology 02/26/24
--- OUTSIDE RECORDS SUMMARY | 2024-03-08 22:07 | XMS_ITS | Encounter Summary ---
Author Name Unknown Organization [place] Address [address] [facility] [place] [address] Care Team Providers Care Sales Engineer Name Role Phone Grabiel Crawford MD Primary Care Provider Lee Burns MD Unavailable Roni Paredes MD Unavailable Daisy Valiente MD Unavailable [phone] Reason for Referral * Consultation (Urgent) - Pending Review Specialty Diagnoses / Procedures Referred By Contac t Referred To Contact Medical Oncology Diagnoses Peritoneal carcinomatosis (H) Grabiel Crawford MD [address] [place] [address] Referral ID Status Reason Start Date Expiration Date V isits Requested Visits Authorized [id number] Pending Review 02/26/2024 02/25/2025 1 1 Question Answer My Clinical Question Is: peritoneal carcinomatosis If you have additional clinical questions which require a provider discussion, please call [phone]. Ask for the Chemo only medicine physician. Reason for Referral: [facility] Scheduling Instructions: [facility] will call you to coordinate your care as prescribed by the provider. If you don? t hear from a personnel representative within 2 business days, please call Additional Information: Fax 4 pages/ Peritoneal carcinomatosis/ Per [facility]/ To FREIGHT COORDINATOR ONC, Urgent Comments Fax 4 pages/ Peritoneal carcinomatosis/ Per [facility]/ To FREIGHT COORDINATOR ONC, Urgent Please be aware that coverage of these services is subject to the terms and limitations of your health insurance plan. Call member services at your health plan with any benefit or coverage questions. [facility] will call you to coordinate your care as prescribed by the provider. If you don? t hear from a personnel representative within 2 business days, please call Encounter Details Date Type Department Care Team (Latest Contact Info) Description 02/26/2024 Transcribe Orders GENERIC EXTERNAL DATA DEPARTMENT Provider, Generic External Data Peritoneal carcinomatosis (H) (Primary Dx) Social History Tobacco Use Types Packs/Day Years [...] Description 03/10/2024 9:00 AM CDT Virtual Visit [facility] [address] [place] [phone] Daisy Valiente MD [address] [place] [address] [address] [place], [place] [address] Chana Curran [address] [id number] 03/24/2024 8:50 AM CDT Office Visit [facility] [address] [place] [address] Roni Paredes MD [address] [place] [id number] Ya Galdamez CNP [address] [id number] Scheduled Referrals Name Type Priority Associated Diagnoses Orde r Schedule Adult Oncology/Hematology Hatchery Attendant Referral Referral Urgent: 3-5 Days Peritoneal carcinomatosis (H) Ordered: 02/26/2024 documented as of this encounter Visit Diagnoses Diagnosis Peritoneal carcinomatosis (H)- Primary Malignant neoplasm of peritoneum, unspecified documented in this encounter Care Teams Sales Engineer Relationship Specialty Start Date End Date Grabiel Crawford MD [address] [phone] PCP - General Family Medicine 08/13/23 Lee Burns MD [address] [place] [phone] Cardiovascular Disease 09/07/23 Roni Paredes MD [address] [place] [id number] Assigned Heart and Vascular Provider 10/13/23 Daisy Valiente MD [address] [place] [id number] Gynecologic Oncology 02/26/24 documented as of this encounter
--- OUTSIDE RECORDS SUMMARY | 2024-03-08 22:07 | XMS_ITS | Encounter Summary ---
Author Name Unknown Organization [place] Address [address] [facility] [place] [address] Care Team Providers Care Machine Wood Sander Name Role Phone Grabiel Crawford MD Primary Care Provider Lee Burns MD Unavailable Roni Paredes MD Unavailable Daisy Valiente MD Unavailable Encounter Details Date Type Department Care Team (Late st Contact Info) Description 03/06/2024 Orders Only [facility] - Cancer Care Service Line [facility] [place] [address] Daisy Valiente MD [address] [place] [address] 88 [place] [address] Ovarian cancer, bilateral (H) (Primary Dx) Social History Tobacco Use [...] Description 03/10/2024 9:00 AM CDT Virtual Visit M [facility] 909 [place] [phone] Daisy Valiente MD 516 [facility] 88 [place], [place] [address] Chana Curran, 2450 [place] [address] 03/24/2024 8:50 AM CDT Office Visit [facility] [place] [address] [facility] [address] [place] [phone] Roni Paredes MD [address] [facility]00 [place], [place] [address] Ya Galdamez, PULP DRIER [address] [place] [phone] documented as of this encounter Visit Diagnoses Diagnosis Ovarian cancer, bilateral (H)- Primary documented in this encounter Care Teams Machine Wood Sander Relationship Specialty Start Date End Date Grabiel Crawford MD [address] [place], [place] [address] PCP - General Family Medicine 08/13/23 Lee Burns MD 6 [place], [place] [address] Cardiovascular Disease 09/07/23 Roni Paredes MD [address] [facility] [address] [place] [address] Assigned Heart and Vascular Provider 10/13/23 Daisy Valiente MD [address] [address] Gynecologic Oncology 02/26/24 documented as of this encounter
--- OUTSIDE RECORDS SUMMARY | 2024-03-08 22:07 | XMS_ITS ---
Author Name Unknown Organization [place] Address [address] [facility] [place] [address] Care Team Providers Care Coordinator Integrated Marketing Name Role Phone Grabiel Crawford MD Primary Care Provider Lee Burns MD Unavailable Roni Paredes MD Unavailable Daisy Valiente MD Unavailable Active Problems Problem Noted Date Diagnosed Date [...] Dehydration 09/02/2023 Hyponatremia 09/02/2023 Chemotherapy-induced neutropenia (H24) 3 Diarrhea, unspecified type 09/02/2023 Dyslipidemia 09/25/2019 Aortic calcification (H24) 08/03/2017 Benign essential hypertension 03/27/2016 Gastroesophageal reflux disease 03/27/2016 Current Oncology Plans No current plan information found. Past Plans No past plan information found. Radiation Treatments * No radiation treatments are documented for this patient in [facility]. Treatments may have been administered in another system. Lifetime Dose Tracking * Chemical Lifetime Dose Automatic Entry Manual Entr y Air Kerma 1.62 mGy 1.62 mGy 0 mGy Fluoro Time 0.7 Minutes 0.7 Minutes 0 Minutes
--- OUTSIDE RECORDS SUMMARY | 2024-03-08 22:07 | XMS_ITS | Encounter Summary ---
Author Name Unknown Organization [place] Address [address] [facility] 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 [place] [address], [place] [address] [facility] [place] [phone] Daisy Valiente MD [address] [place] [address] 88 [place] [address] *-*INCOMING RECORDS*-* (Peritoneal carcinomatosis (H) [C78.6]) Social History Tobacco Use Types Packs/Day Years [...] on file documented as of this encounter Miscellaneous Notes * Telephone Encounter - Jamie Cherry - 02/26/2024 11:16 AM CDT RECORDS STATUS - ALL OTHER DIAGNOSIS Action Action Taken 02/26/24 Spoke w/ Amari @ [facility] Medical Records - they will fax additional records shortly. Advised we have most recent note, detailed below. Advised all imaging @ [facility]. 11:30 AM Records from [facility] received, sent to HIM for STAT upload, emailed to Best, TA Curry 1:17 PM RECORDS RECEIVED FROM: Shaka White [facility] DATE RECEIVED: 02/25 NOTES STATUS DETAILS OFFICE NOTE from medical oncologist [facility] Dr. Denisha Brar: 01/30/24, 11/29/23, 11/09/23 - (additional records requested 02/25) DISCHARGE SUMMARY from hospital [facility]/CE - [facility] 02/11/24, 11/26/23, 09/30/23, 09/21/23, 09/02/23, 08/24/23, 08/21/23, 08/16/23, 05/03/16, 12/15/13, 10/16/11, 07/31/05, 07/26/05 [facility] 12/05/23, 07/30/23 DISCHARGE REPORT from the ER [facility] 08/13/23 OPERATIVE REPORT CE - [facility] 12/05/23: Exploratory Laparotomy MEDICATION LIST [facility] LABS PATHOLOGY REPORTS Cindy, Reports in CE 12/05/23: [id number] 08/22/23: [id number] 07/31/23: [id number] ANYTHING RELATED TO DIAGNOSIS [facility] 02/11/24 IMAGING (NEED IMAGES & REPORT) CT SCANS PACS 07/30/23: [facility] ULTRASOUND PACS 08/07/23, 07/31/23: Cindy documented in this encounter Plan of Treatment Upcoming Encounters Date Type Department Care Team (Late st Contact Info) Description 03/10/2024 9:00 AM CDT Virtual Visit M [facility] 909 [place] [phone] Daisy Valietne MD [address] [place] [address] 88 [place], [place] [phone] Chana Curran, 2450 [place] [address] 03/24/2024 8:50 AM CDT Office Visit M [place] [facility] [place] [address] [facility] [address] [place] [phone] Roni Paredes MD [address] [facility]00 [place], [place] [address] Ya Galdamez, POULTRY FARMER [address] [place] [phone] documented as of this encounter Visit Diagnoses Not on filedocumented in this encounter Care Teams Clothes Ironer Relationship Specialty Start Date End Date Grabiel Crawford MD [address] [facility] [place], [place] [phone] PCP - General Family Medicine 08/13/23 Lee Burns MD [address] [place] [address] Cardiovascular Disease 09/07/23 Roni Paredes MD [address] [place] [address] [place] [address] Assigned Heart and Vascular Provider 10/13/23 Daisy Valiente MD [address] [address] Gynecologic Oncology 02/26/24 documented as of this encounter
--- OUTSIDE RECORDS SUMMARY | 2024-03-08 22:07 | XMS_ITS | Clinical Summary ---
Author Name Unknown Organization [place] Address [address] [place] [address] Care Team Providers Care Customs Examiner Name Role Phone Fay Crawford MD Primary Care Provider Lee Burns MD Unavailable Roni Paredes MD Unavailable Daisy Valiente MD Unavailable Allergies No known active allergies Medications Medication [...] as needed for pain 30 tablet 03/06/2024 Active Active Problems Problem Noted Date Diagnosed [...] essential hypertension 03/27/2016 Gastroesophageal reflux disease 03/27/2016 Encounters Date Type Department Care Team Description 03/06/2024 Travel 03/06/2024 Orders Only [facility] - Cancer Care Service Line [address] [place] [phone] Daisy Valiente MD Ovarian cancer, bilateral (H) (Primary Dx) 03/05/2024 MyC Medical Advice [address] [phone] [facility] 02/29/2024 1:00 PM CDT Infusion Therapy [facility] [place] [address] [address] [phone] Daisy Valiente MD Ovarian cancer, bilateral (H) 02/29/2024 11:00 AM CDT Oncology Visit [place] [address] [address], [facility] 610 [facility] [place] [phone] Daisy Valiente MD Ovarian cancer, bilateral (H) (Primary Dx); Urine frequency 02/29/2024 Travel 02/29/2024 PRE VISIT [place] [address] [address], [place] [address] [facility] [place] [phone] Daisy Valiente MD *-*INCOMING RECORDS*-* (Peritoneal carcinomatosis (H) [C78.6]) 02/26/2024 Transcribe Orders GENERIC EXTERNAL DATA DEPARTMENT Provider, Generic External Data Peritoneal carcinomatosis (H) (Primary Dx) 02/11/2024 10:59 AM CDT - 02/11/2024 11:59 PM CDT Hospital Encounter [facility] [address] [phone] Maty Hernandez APRN FURNITURE RENTAL CONSULTANT Non-Fv Credentialed Provider, Radiology 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) Discharge Disposition: Home or Self Care 02/11/2024 10:58 AM CDT - 02/11/2024 12:00 PM CDT Hospital Encounter [facility] [address] [phone] Non-Fv Credentialed Provider, Radiology Maty Hernandez APRN FURNITURE RENTAL CONSULTANT Discharge Disposition: Home or Self Care from Last 3 Months Social History Tobacco Use Types Packs/Day Years [...] 175.3 cm (5' 9) 11/26/2023 10:20 AM RETAIL PERFORMANCE COACH Body Mass Index 18.64 11/26/2023 10:20 AM RETAIL PERFORMANCE COACH Plan of Treatment Upcoming Encounters Date Type Department Care Team (Late st Contact Info) Description 03/10/2024 9:00 AM CDT Virtual Visit M [facility] [address] [place] [address] Daisy Valiente MD 516 [facility] 88 [place], [place] [address] Chana Curran, GC [address] [place], [place] [address] 03/24/2024 8:50 AM CDT Office Visit M [facility] [place] [address] [facility] [address] [place] [address] Roni Paredes MD [address] [facility] [address] [place], [place] [address] Ya Galdamez, FURNITURE RENTAL CONSULTANT 6[address] [place], [place] [address] Health Maintenance Due Date Last Done Comments ADVANCE CARE PLANNING 1945 ANNUAL REVIEW OF HM ORDERS 1945 DEXA 1945 HF ACTION PLAN 1945 LIPID 1945 HEPATITIS C SCREENING 1963 RSV VACCINE ( & 60+) (1 - 1-dose 60+ series) 2005 ZOSTER IMMUNIZATION (1 of 2) 10/28/2007 09/02/2007 FALL RISK ASSESSMENT 2010 Pneumococcal Vaccine: 65+ Years (2 of 2 - PPSV23 or PCV20) 05/23/2016 03/28/2016, 03/01/2011 DTAP/TDAP/TD IMMUNIZATION (2 - Td or Tdap) 03/01/2021 03/01/2011 COVID-19 Vaccine (3 - Pfizer risk series) 04/13/2021 03/16/2021, 02/23/2021 PHQ-2 (once per calendar year) 2023 MEDICARE ANNUAL WELLNESS VISIT 03/20/2024 03/20/2023, 07/19/2021 BMP 04/30/2024 10/30/2023, 12/0 03/2023, 10/05/2023, Additional history exists INFLUENZA VACCINE (Season Ended) 2024 11/12/2019 ALT 09/30/2024 09/30/2023, 09/02/2023 CBC 10/03/2024 10/03/2023, 1105/2023, 10/01/2023, Additional history exists GLUCOSE 10/30/2026 10/30/2023, 120 03/2023, 10/05/2023, Additional history exists TSH W/FREE T4 REFLEX Completed 09/30/2023 HPV IMMUNIZATION Aged Out No longer e ligible based on patient's age to complete this topic IPV IMMUNIZATION Aged Out No longer e ligible based on patient's age to complete this topic MENINGITIS IMMUNIZATION Aged Out No l onger eligible based on patient's age to complete this topic RSV MONOCLONAL ANTIBODY Aged Out No l onger eligible based on patient's age to complete this topic Medical Devices Implanted Type Area Game Show Host Device Identifier Shelf Expiration Date Model / Serial / Lot Powerport Clearvue Slim- 3 Implanted:Qty: 1 on 08/21/2023 by Gil Martinez MD [place] Right: Chest Wall [employer]-ACCES 05/04/2025 / / [id number] Eye Imp Iol James Pcl Deluxe Technis 1pc Zmb00 20.0 Implanted:Qty: 1 on 10/16/2011 at [facility] Right: Eye ADVANCED MEDICAL OPT 01/02/2014 ZMB00 20.0 / [id number] / Eye Imp Iol [place] Pcl Deluxe Technis 1pc Zmb00 20.0 Implanted:Qty: 1 on 12/15/2013 by Juan R Roa MD at [facility] Left: Eye [employer] OPT 06/03/2017 ZMB00 20.0 / [id number] / Procedures Procedure Name Priority Date/Time Associated Diagnosis Comments CA 125 Routine 02/29/2024 12:58 PM CDT Ovarian cancer, bilateral (H) CT CHEST/ABDOMEN/PELVIS W CONTRAST STAT 02/11/2024 11:45 AM CDT 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) ISTAT CREATININE POCT Routine 02/11/2024 11:34 AM CDT LAB RESULT - HIM SCAN 01/30/2024 12:00 AM CDT BASIC METABOLIC PANEL Routine 10/30/2023 12:17 PM RETAIL PERFORMANCE COACH Acute congestive heart failure, unspecified heart failure type (H) CBC WITH PLATELETS & DIFFERENTIAL Routine 10/03/2023 6:07 AM RETAIL PERFORMANCE COACH TSH WITH FREE T4 REFLEX STAT 09/30/2023 12:35 PM RETAIL PERFORMANCE COACH COMPREHENSIVE METABOLIC PANEL STAT 09/30/2023 10:19 AM RETAIL PERFORMANCE COACH from Last 3 Months or Most Recently [...] LAB - BLOOD O RDERABLES [facility] [place] [facility] Lab [address] [facility], [address] [place] [address], [facility] * CT Chest/Abdomen/Pelvis w Contrast (02/11/2024 11:45 [...] small bowel obstruction. FAY CANALES MD Maty Svitlana Hernandez REVENUE FIELD AUDITOR FURNITURE RENTAL CONSULTANT IMG CT ORDERA BLES * (ABNORMAL) Creatinine POCT (02/11/2024 11:34 AM CDT) Pathologist [facility] Creatinine POCT 1.0 0.5 - 1.0 mg/dL 02/11/2024 11:41 AM CDT LABORATORY POC GFR, ESTIMATED POCT 57(L) >60 mL/min/1.7 3m2 02/11/2024 11:41 AM CDT LABORATORY POC Blood, venous BLOOD SPECIMEN / Unknown 02/11/2024 11:34 AM CDT 02/11/2024 11:41 AM CDT Radiology Non-Fv Credentialed Provider L AB - BEAKER POCT LABORATORY POC [facility] [address] 1[address] floor, [address] [place] [address] * Lab Result - HIM Scan (01/30/2024 12:00 AM CDT) 01/30/2024 Provider Outside NON-BEAKER LAB TE STING * (ABNORMAL) Basic metabolic panel (10/30/2023 12:17 PM RETAIL PERFORMANCE COACH) [facility] Sodium 138 135 - 145 mmol/L 10/30/2023 1:[address] [facility] Comment:Reference intervals for this test were updated on 07/31/2023 to more accurately reflect our healthy population. There may be differences in the flagging of prior results with similar values performed with this method. Interpretation of those prior results can be made in the context of the updated reference intervals. Potassium 3.9 3.4 - 5.3 mmol/L 10/30/2023 1:[address] [facility] Chloride 98 98 - 107 mmol/L 10/30/2023 1:[address] [facility] Carbon Dioxide (CO2) 32(H) 22 - 29 mmol/L 10/30/2023 1:[address] [facility] Anion Gap 8 7 - 15 mmol/L 10/30/2023 1:[address] [facility] Urea Nitrogen 11.8 8.0 - 23.0 mg/dL 10/30/2023 1:[address] [facility] Creatinine 0.84 0.51 - 0.95 mg/dL 10/30/2023 1:05 PM RETAIL PERFORMANCE COACH LABORATORY GFR Estimate 71 >60 mL/min/1. 73m2 10/30/2023 1:05 PM RETAIL PERFORMANCE COACH LABORATORY Calcium 8.7(L) 8.8 - 10.2 mg/dL 10/30/2023 1:05 PM RETAIL PERFORMANCE COACH LABORATORY Glucose 88 70 - 99 mg/dL 10/30/2023 1:05 PM RETAIL PERFORMANCE COACH LABORATORY Blood BLOOD SPECIMEN / Unknown Venipuncture / Unknown 10/30/2023 12:17 PM RETAIL PERFORMANCE COACH 10/30/2023 12:17 PM RETAIL PERFORMANCE COACH Roni Paredes MD LAB - BLOOD ORDERABL ES LABORATORY [facility] Lab [address] 1[address] floor, [address] [place] [address], [facility] [phone] * TSH with free T4 reflex (09/30/2023 12:35 PM RETAIL PERFORMANCE COACH) TSH 1.87 0.30 - 4.20 uIU/mL 09/30/2023 1:48 PM RETAIL PERFORMANCE COACH LABORATORY Blood BLOOD SPECIMEN / Unknown Venipuncture / Unknown 09/30/2023 12:35 PM RETAIL PERFORMANCE COACH 09/30/2023 12:37 PM RETAIL PERFORMANCE COACH Matilde Lisa PA-C LAB - BLOOD [facility] [address] floor, [address] [place] [address], [place] [phone] * (ABNORMAL) Comprehensive metabolic panel (09/30/2023 10:19 AM RETAIL PERFORMANCE COACH) Sodium 141 135 - 145 mmol/L 09/30/2023 11:39 AM RETAIL PERFORMANCE COACH LABORATORY Comment:Reference intervals for this test were updated on 07/31/2023 to more accurately reflect our healthy population. There may be differences in the flagging of prior results with similar values performed with this method. Interpretation of those prior results can be made in the context of the updated reference intervals. Potassium 3.8 3.4 - 5.3 mmol/L 09/30/2023 11:[address] [facility] Carbon Dioxide (CO2) 28 22 - 29 mmol/L 09/30/2023 11:[address] [facility] Anion Gap 10 7 - 15 mmol/L 09/30/2023 11:[address] [facility] Urea Nitrogen 14.7 8.0 - 23.0 mg/dL 09/30/2023 11:[address] [facility] Creatinine 0.72 0.51 - 0.95 mg/dL 09/30/2023 11:[address] [facility] GFR Estimate 86 >60 mL/min/1. 73m2 09/30/2023 11:[address] [facility] Calcium 7.8(L) 8.8 - 10.2 mg/dL 09/30/2023 11:[address] [facility] Chloride 103 98 - 107 mmol/L 09/30/2023 11:[address] [facility] Glucose 85 70 - 99 mg/dL 09/30/2023 11:[address] [facility] Alkaline Phosphatase 125 40 - 150 U/L 09/30/2023 11:[address] [facility] Comment:Reference intervals for this test were updated on 09/18/2023 to more accurately reflect our healthy population. There may be differences in the flagging of prior results with similar values performed with this method. Interpretation of those prior results can be made in the context of the updated reference intervals. AST 34 0 - 45 U/L 09/30/2023 11:[address] [facility] Comment:Reference intervals for this test were updated on 04/16/2023 to more accurately reflect our healthy population. There may be differences in the flagging of prior results with similar values performed with this method. Interpretation of those prior results can be made in the context of the updated reference intervals. ALT 21 0 - 50 U/L 09/30/2023 11:[address] [facility] Comment:Reference intervals for this test were updated on 04/16/2023 to more accurately reflect our healthy population. There may be differences in the flagging of prior results with similar values performed with this method. Interpretation of those prior results can be made in the context of the updated reference intervals. Protein Total 5.3(L) 6.4 - 8.3 g/dL 09/30/2023 11:39 AM RETAIL PERFORMANCE COACH LABORATORY Albumin 2.6(L) 3.5 - 5.2 g/dL 09/30/2023 11:39 AM RETAIL PERFORMANCE COACH LABORATORY Bilirubin Total 0.2 <=1.2 mg/dL 09/30/2023 11:39 AM RETAIL PERFORMANCE COACH LABORATORY Blood VENOUS LINE / Unknown Venipuncture / Unknown 09/30/2023 10:19 AM RETAIL PERFORMANCE COACH 09/30/2023 10:25 AM RETAIL PERFORMANCE COACH Denise Nunes MD LAB - BLOOD ORDERAB LES LABORATORY [facility] [address] floor, [address] [place] [address], [facility] [phone] from Last 3 Months or Most Recently Relevant to Health Maintenance Advance Directives For more information, please contact: [phone] * No CPR- Do NOT Intubate (Latest [...] Comments Code status determined by: Other (please documen t) Care Teams Customs Examiner Relationship Specialty Start Date End Date Fay Crawford MD [address] [address] PCP - General Family Medicine 08/13/23 Lee Burns MD [address] [place] [phone] Cardiovascular Disease 09/07/23 Roni Paredes MD [address] [address] [place] [phone] Assigned Heart and Vascular Provider 10/13/23 Daisy Valiente MD [address] [place] [phone] Gynecologic Oncology 02/26/24
--- OUTSIDE RECORDS SUMMARY | 2024-03-08 22:07 | XMS_ITS | Encounter Summary ---
Author Name Unknown Organization [place] Address [address] [facility] [place] [address] Care Team Providers Care Process Development Associate Name Role Phone Grabiel Crawford MD Primary Care Provider Lee Burns MD Unavailable Roni Paredes MD Unavailable Daisy Valiente MD Unavailable Encounter Details Date Type Department Care Team (Latest Contact Info) Description 03/06/2024 Travel Social History Tobacco Use Types Packs/Day [...] Description 03/10/2024 9:00 AM CDT Virtual Visit [facility] 9[address] [place] [address] Daisy Valiente MD 516 [facility] 88 [place] [address] Chana Curran, GC [address] [place] [address] 03/24/2024 8:50 AM CDT Office Visit [facility] [place] [address] [facility] [address] [place] [phone] Roni Paredes MD [address] [facility] [address] [place], [place] [address] Ya Galdamez, ROCK PICKER [address] [place] [address] documented as of this encounter Visit Diagnoses Not on filedocumented in this encounter Care Teams Process Development Associate Relationship Specialty Start Date End Date Grabiel Crawford MD [address] [facility] [place] [address] PCP - General Family Medicine 08/13/23 Lee Burns MD [address] [place] [phone] Cardiovascular Disease 09/07/23 Roni Paredes MD [address] [place] [address] [place] [address] Assigned Heart and Vascular Provider 10/13/23 Daisy Valiente MD [address] [place] [address] Gynecologic Oncology 02/26/24 documented as of this encounter
--- OUTSIDE RECORDS SUMMARY | 2024-03-08 22:08 | XMS_ITS | Encounter Summary ---
Author Name Unknown Organization [place] Address [address] [facility] [place] [address] Care Team Providers Care Title I Director Name Role Phone Fay Crawford MD Primary Care Provider Lee Burns MD Unavailable Roni Paredes MD Unavailable Reason for Referral * Diagnostic Imaging CT Scan (Routine) - Closed Specialty Diagnoses / Procedures Referred By Tushar robison Referred To Contact Radiology. 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) Discharge Disposition: Home or Self Care Social History Tobacco Use Types Packs/Day Years [...] on file documented as of this encounter Medications at Time of Discharge Medication Sig Dispensed Refills Start Date End Date acetaminophen (TYLENOL) 500 MG tablet Take 500-1,000 mg by mouth every 6 hours as needed for mild pain amiodarone (PACERONE) 200 MG tabletIndications:Atria l fibrillation, unspecified type (H) Take 1 tablet (200 mg) by mouth daily 90 tablet 1 11/08/2023 apixaban ANTICOAGULANT (ELIQUIS ANTICOAGULANT) 5 MG tablet Take 5 mg by mouth 2 times daily Calcium 600 MG tablet Take 1 tablet by mouth daily Cholecalciferol (VITAMIN D PO) Take by mouth. furosemide (LASIX) 20 MG tabletIndications:Acute congestive heart failure, unspecified heart failure type (H) Take 0.5 tablets (10 mg) by mouth daily 45 tablet 3 10/12/2023 lidocaine-prilocaine (EMLA) 2.5-2.5 % external cream Apply topically as needed for moderate pain To port an hour before chemo loperamide (IMODIUM) 2 MG capsuleIndications:Diar sadia, unspecified type Take 1 capsule (2 mg) by mouth 4 times daily as needed for diarrhea 30 capsule 09/07/2023 loratadine (CLARITIN) 10 MG tablet Take 10 mg by mouth daily FOR 3 DAYS AFTER CHEMO magnesium oxide (MAG-OX) 400 MG tabletIndications:Acute congestive heart failure, unspecified heart failure type (H),Atrial fibrillation, unspecified type (H) Take 1 tablet (400 mg) by mouth 2 times daily 30 tablet 11/29/2023 metoprolol tartrate (LOPRESSOR) 50 MG tabletIndications:Atria l fibrillation, unspecified type (H) Take 1 tablet (50 mg) by mouth 2 times daily 60 tablet 10/02/2023 mirtazapine (REMERON) 15 MG tablet TAKE ONE TABLET BY MOUTH ONE TIME DAILY* 09/14/2023 OLANZapine (ZYPREXA) 2.5 MG tablet Take 2.5 mg by mouth at bedtime Star the night before chemo and continue for 3 nights after chemo omeprazole (PRILOSEC) [address] capsule Take 40 mg by mouth daily ondansetron (ZOFRAN) 8 MG tablet Take 8 mg by mouth every 8 hours as needed for nausea prochlorperazine (COMPAZINE) 10 MG tablet Take 10 mg by mouth every 6 hours as needed for nausea or vomiting UNKNOWN TO PATIENT Chemotherapy in clinic documented as of this encounter Plan of Treatment Upcoming Encounters Date Type Department Care Team (Late st Contact Info) Description 03/10/2024 9:00 AM CDT Virtual Visit [facility] 9[address] [place] [address] Daisy Valiente MD [address] [place] [phone] Chana Curran, GC [address] [facility] [place], [place] [address] 03/24/2024 8:50 AM CDT Office Visit [facility] [address] 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 $Given 02/11/2024 11:44 AM CDT 62 mLs documented in this encounter Care Teams Title I Director Relationship Specialty Start Date End Date Fay Crawford MD [address] [address] PCP - General Family Medicine 08/13/23 Lee Burns MD [address] [place], [place] 3[address] Cardiovascular Disease 09/07/23 Roni Paredes MD [address] [facility] [address] [place], [place] [address] Assigned Heart and Vascular Provider 10/13/23 documented as of this encounter
--- OUTSIDE RECORDS SUMMARY | 2024-03-08 22:08 | XMS_ITS | Encounter Summary ---
Author Name Unknown Organization [place] Address [address] [facility] [place] [address] Care Team Providers Care Stock Supervisor Name Role Phone Grabiel Crawford MD Primary Care Provider Lee Burns MD Unavailable [phone] Roni Paredes MD Unavailable Daisy Valiente MD Unavailable Encounter Details Date Type Department Care Team (Late st Contact Info) Description 11/14/2023 Telephone [facility] [place] [phone] [facility] [address] [place] [phone] Roni Paredes MD [address] [facility] [address] [place] [address] Social History Tobacco Use Types Packs/Day Years [...] 03/10/2024 9:00 AM CDT Virtual Visit M [facility] 9[address] [place] [phone] Daisy Valiente MD 6 [facility] 88 [place], [place] [address] Chana Curran, [address] [place], [place] [address] 03/24/2024 8:50 AM CDT Office Visit M [facility] [place] 6405 [facility] [address] [place] [phone] Roni Paredes MD [address] [facility] [address] [place], [place] [address] Ya Galdamez, BEEF TRIMMER [address] [facility] [place] [address] documented as of this encounter Visit Diagnoses Not on filedocumented in this encounter Care Teams Stock Supervisor Relationship Specialty Start Date End Date Grabiel Crawford MD [address] [place], [place] 2840[address] PCP - General Family Medicine 08/13/23 Lee Burns MD 6 [place], [place] [address] Cardiovascular Disease 09/07/23 Roni Paredes MD [address] [place] [address] Assigned Heart and Vascular Provider 10/13/23 Daisy Valiente MD [address] [place] [address] Gynecologic Oncology 02/26/24 documented as of this encounter
--- OUTSIDE RECORDS SUMMARY | 2024-03-08 22:08 | XMS_ITS | Encounter Summary ---
Author Name Unknown Organization [place] Address [address] [place] [address] Care Team Providers Care Instructional Design Specialist Name Role Phone Grabiel Crawford MD Primary Care Provider Lee Burns MD Unavailable [phone] Roni Paredes MD Unavailable Encounter Details Date Type Department Care Team (Late st Contact Info) Description 02/11/2024 10:58 AM CDT - 02/11/2024 12:00 PM CDT Hospital Encounter [facility] [address] [phone] Non-Fv Credentialed Provider, Radiology Maty Hernandez APRN [facility] [address] [facility] [address] [place] [address] Discharge Disposition: Home or Self Care Social [...] 03/10/2024 9:00 AM CDT Virtual Visit [facility] [address] [facility] [place] [phone] Daisy Valiente MD 516 [facility] 88 [place], [place] [address] Chana Curran, GC [address]50 [place], [place] [address] 03/24/2024 8:50 AM CDT Office Visit [facility] [place] [address] [facility] [address] [place] [address] Roni Paredes MD [address] [facility] [address] [place], [place] [address] Ya Galdamez, CENTRAL LAB TECHNICIAN 6[address] [place], [place] [address] documented as of this encounter Procedures Procedure Name Priority Date/Time Associated Diagnosis Comments ISTAT CREATININE POCT Routine 02/11/2024 11:34 AM CDT documented in this encounter Results * (ABNORMAL) Creatinine POCT (02/11/2024 11:34 AM CDT) Creatinine POCT 1.0 0.5 - 1.0 mg/dL 02/11/2024 11:41 AM CDT LABORATORY POC GFR, ESTIMATED POCT 57(L) >60 mL/min/1.7 3m2 02/11/2024 11:41 AM CDT LABORATORY POC Blood, venous BLOOD SPECIMEN / Unknown 02/11/2024 11:34 AM CDT 02/11/2024 11:41 AM CDT Radiology Non-Fv Credentialed Provider Kimmy VELARDE POCT LABORATORY POC [facility] [address] 1[address] floor, [address] [place] [address], [facility] documented in this encounter Visit Diagnoses Not on filedocumented in this encounter Administered Medications Inactive Administered Medications - up to 3 most recent administrations Medication Order MAR Action Action Date Dose Rate Site heparin 100 unit/mL injection 5-10 mL 5-10 mL, Intracatheter, EVERY 28 DAYS, First dose on Sun02/11/24 at 1200, To de-access each port in dual implanted port. Flush with 10 mL NS sodium chloride 0.9% flush followed by 5 mL heparin (100 units/mL) at discharge and at least every 28 days. MAX: 5 mL per each port lumen $Given 02/11/2024 11:51 AM CDT 5 mLs heparin lock flush 10 UNIT/ML injection 5-10 mL 5-10 mL, Intracatheter, EVERY 1 HOUR PRN, post meds or blood draw, other, to lock each port in dual implanted port, Starting on Sun02/11/24 at 1132, Flush each port lumen with the sodium chloride 0.9% flush followed by the heparin flush. MAX dose: 5 mL of heparin for each lumen heparin lock flush 10 UNIT/ML injection 5-10 mL 5-10 mL, Intracatheter, EVERY 24 HOURS, First dose on Sun02/11/24 at 1200, To lock each dormant port in dual implanted port. MAX: 5 mL of heparin for each lumen Check PRN heparin flush order to see when the last dose of the PRN heparin was given before administering this heparin dose. Flush with sodium chloride 0.9% followed by the heparin flush. sodium chloride (PF) 0.9% PF flush 10-20 mL 10-20 mL, Intracatheter, EVERY 1 MIN PRN, line flush, post meds or blood draw, to flush each lumen of the CVC Implanted port, Starting on Sun02/11/24 at 1132, 10 mL per port lumen post IV meds; 20 mL per port lumen post post blood draw. sodium chloride (PF) 0.9% PF flush 10-20 mL 10-20 mL, Intracatheter, EVERY 1 HOUR PRN, other, to de-access port when not in use, Starting on Sun02/11/24 at 1132, Use sodium chloride 0.9% at least daily to de-access each port and lock dormant implanted port while not in use. Flush each port access with 10 mL sodium chloride 0.9% MAX: 10 mL per each port lumen $Given 02/11/2024 11:38 AM CDT 10 mLs sodium chloride (PF) 0.9% PF flush 10-20 mL 10-20 mL, Intracatheter, EVERY 28 DAYS, First dose on Sun02/11/24 at 1200, To flush and lock each port in dual implanted port. Flush each port with 10 mL sodium chloride 0.9% followed by either heparin or anticoagulant citrate as ordered. Max: 10 mL per each port lumen. documented in this encounter Active and Recently Administered Medications Times are shown in CDT. Scheduled Medication Order 02/09/2024 02/10/2024 02/11/2024 heparin 100 unit/mL injection 5-10 mL 5-10 mL, Intracatheter, EVERY 28 DAYS, First dose on Sun02/11/24 at 1200, To de-access each port in dual implanted port. Flush with 10 mL NS sodium chloride 0.9% flush followed by 5 mL heparin (100 units/mL) at discharge and at least every 28 days. MAX: 5 mL per each port lumen 1151 ($Given - Provi mayuri: Haile Lazcano RN) heparin lock flush 10 UNIT/ML injection 5-10 mL 5-10 mL, Intracatheter, EVERY 24 HOURS, First dose on Sun02/11/24 at 1200, To lock each dormant port in dual implanted port. MAX: 5 mL of heparin for each lumen Check PRN heparin flush order to see when the last dose of the PRN heparin was given before administering this heparin dose. Flush with sodium chloride 0.9% followed by the heparin flush. 1200 (Canceled Entry - Provider: Orders Generic Provider - Comment: Automatically canceled at discontinue of medication order) sodium chloride (PF) 0.9% PF flush 10-20 mL 10-20 mL, Intracatheter, EVERY 28 DAYS, First dose on Sun02/11/24 at 1200, To flush and lock each port in dual implanted port. Flush each port with 10 mL sodium chloride 0.9% followed by either heparin or anticoagulant citrate as ordered. Max: 10 mL per each port lumen. 1200 (Canceled Entry - Provider: Orders Generic Provider - Comment: Automatically canceled at discontinue of medication order) PRN Medication Order 02/09/2024 02/10/2024 02/11/2024 heparin lock flush 10 UNIT/ML injection 5-10 mL 5-10 mL, Intracatheter, EVERY 1 HOUR PRN, post meds or blood draw, other, to lock each port in dual implanted port, Starting on Sun02/11/24 at 1132, Flush each port lumen with the sodium chloride 0.9% flush followed by the heparin flush. MAX dose: 5 mL of heparin for each lumen sodium chloride (PF) 0.9% PF flush 10-20 mL 10-20 mL, Intracatheter, EVERY 1 MIN PRN, line flush, post meds or blood draw, to flush each lumen of the CVC Implanted port, Starting on Sun02/11/24 at 1132, 10 mL per port lumen post IV meds; 20 mL per port lumen post post blood draw. sodium chloride (PF) 0.9% PF flush 10-20 mL 10-20 mL, Intracatheter, EVERY 1 HOUR PRN, other, to de-access port when not in use, Starting on Sun02/11/24 at 1132, Use sodium chloride 0.9% at least daily to de-access each port and lock dormant implanted port while not in use. Flush each port access with 10 mL sodium chloride 0.9% MAX: 10 mL per each port lumen 1138 ($Given - Provi mayuri: Haile Lazcano RN) documented in this encounter Care Teams Instructional Design Specialist Relationship Specialty Start Date End Date Grabiel Crawford MD [address] [place] [phone] PCP - General Family Medicine 08/13/23 Lee Burns MD [address] [place] [id number] Cardiovascular Disease 09/07/23 Roni Paredes MD [address] [facility] [address] [place] [address] Assigned Heart and Vascular Provider 10/13/23 documented as of this encounter
--- OUTSIDE RECORDS SUMMARY | 2024-03-08 22:08 | XMS_ITS | Encounter Summary ---
Author Name Unknown Organization [place] Address [address] [facility] [address] Care Team Providers Care Service Station Operator Name Role Phone Grabiel Crawford MD Primary Care Provider Lee Burns MD Unavailable Roni Paredes MD Unavailable Encounter Details Date Type Department Care Team (Latest Contact Info) Description 12/03/2023 Travel Social History Tobacco Use Types Packs/Day [...] Description 03/10/2024 9:00 AM CDT Virtual Visit [facility] 909 [place] [address] Daisy Valiente MD [address] [place] [address] Chana Curran, GC [address] [place], [place] [address] 03/24/2024 8:50 AM CDT Office Visit [facility] [place] 6405 [facility] [address] [place] [phone] Roni Paredes MD 6[address] [facility] [address] [place] [phone] Ya Galdamez, MILLWORK ESTIMATOR [address] [place] [address] documented as of this encounter Visit Diagnoses Not on filedocumented in this encounter Care Teams Service Station Operator Relationship Specialty Start Date End Date Grabiel Crawford MD [address] [place] [phone] PCP - General Family Medicine 08/13/23 Lee Burns MD 516 [place] [address] Cardiovascular Disease 09/07/23 Roni Paredes MD [address] [facility] [facility] [address] [place] [address] Assigned Heart and Vascular Provider 10/13/23 documented as of this encounter
--- OUTSIDE RECORDS SUMMARY | 2024-03-08 22:08 | XMS_ITS | Encounter Summary ---
Author Name Unknown Organization [place] Address [address] [place] [address] Care Team Providers Care Field Operations Farm Manager Name Role Phone Grabiel Crawford MD Primary Care Provider Lee Burns MD Unavailable [phone] Encounter Details Date Type Department Care Team (Late Contact Info) Description 09/21/2023 10:00 AM [facility] Hospital Encounter [facility] Suit[facility] [address] [place] [phone] Social History Tobacco Use Types Packs/Day Years [...] on file Sexual Orientation Not on file COVID-19 Exposure Response Date Recorded In the last 10 days, have yo u been in contact with someone who was confirmed or suspected to have Coronavirus/COVID-19? No / Unsure 08/13/2023 3:28 PM CDT documented as of this encounter Plan of Treatment Upcoming Encounters Date Type Department Care Team (Late st Contact Info) Description 03/10/2024 9:00 AM CDT Virtual Visit M [facility] 909 [place] [phone] Daisy Valiente MD 6 [facility] 88 [place], [place] [address] Chana Curran, GC [address]50 [place], [place] [address] 03/24/2024 8:50 AM CDT Office Visit M [facility] [place] 6[address] [facility] [address] [place] [address] Roni Paredes MD 6407 [facility] [address] [place], [place] [address] Ya Galdamez, RAT POISONER [address] [place], [place] [address] documented as of this encounter Visit Diagnoses Not on filedocumented in this encounter Care Teams Field Operations Farm Manager Relationship Specialty Start Date End Date Grabiel Crawford MD [address] [place], [place] [phone] PCP - General Family Medicine 08/13/23 Lee Burns MD [address] [place] [address] Cardiovascular Disease 09/07/23 documented as of this encounter
--- OUTSIDE RECORDS SUMMARY | 2024-03-08 22:08 | XMS_ITS | Encounter Summary ---
Author Name Unknown Organization [place] Address [address] [facility] [address] Care Team Providers Care Javascript Software Engineer Name Role Phone Grabiel Crawford MD Primary Care Provider Lee Burns MD Unavailable Roni Paredes MD Unavailable Daisy Valiente MD Unavailable Reason for Visit * Reason Onset Date Comments Erroneous encounter-disregard 11/02/2023 Encounter Details Date Type Department Care Team (Late st Contact Info) Description 11/02/2023 Telephone [facility] [place] [phone] [facility] [address] [place] [phone] Roni Paredes MD [address] [facility] [address] [place] [address] Erroneous encounter-disregard Social History Tobacco Use Types Packs/Day Years [...] 03/10/2024 9:00 AM CDT Virtual Visit M [facility] 909 [place] [phone] Daisy Valiente MD 6 [facility] 88 [place], [place] [address] Chana Curran, [address]50 [place], [place] [address] 03/24/2024 8:50 AM CDT Office Visit M [facility] [place] 6[address] [facility] [address] [place] [phone] Roni Paredes MD [address] [place] [address] Ya Galdamez, WIRELESS SALES CONSULTANT [address] [place] [address] documented as of this encounter Visit Diagnoses Not on filedocumented in this encounter Care Teams Javascript Software Engineer Relationship Specialty Start Date End Date Grabiel Crawford MD [address] [place] [address] PCP - General Family Medicine 08/13/23 Lee Burns MD [address] [place] [address] Cardiovascular Disease 09/07/23 Roni Paredes MD [address] [address] [place] [address] Assigned Heart and Vascular Provider 10/13/23 Daisy Valiente MD [address] [place] [address] Gynecologic Oncology 02/26/24 documented as of this encounter
--- OUTSIDE RECORDS SUMMARY | 2024-03-08 22:08 | XMS_ITS | Clinical Summary ---
Author Name Unknown Organization [facility] Address [place], [place] [address] Care Team Providers Care Administration Physician Name Role Phone Grabiel Crawford MD Primary Care Provider Allergies No known active allergies Medications Medication Sig Dispensed Refills Start Date End Date Status CALCIUM CARBONATE/VITAMIN D3 (CALCIUM 600 + D ORAL) Take 1 Tablet by mouth once daily. 12/20/2010 Active mirtazapine (REMERON) 15 mg tablet Take 15 mg by mouth at bedtime. 09/14/2023 Active prochlorperazine (COMPAZINE) 10 mg tablet Take 10 mg by mouth every 6 hours if needed. Active loratadine (CLARITIN) 10 mg tablet Take 10 mg by mouth daily for the 3 days after chemo Active apixaban (ELIQUIS) 5 mg tabletIndications:C hronic atrial fibrillation (HC) Take 1 Tablet (5 mg) by mouth two times daily. 60 Tablet 5 11/20/2023 Active metoprolol tartrate (LOPRESSOR) 50 mg tabletIndications:C hronic atrial fibrillation (HC) Take 1 Tablet (50 mg) by mouth two times daily. 60 Tablet 11/20/2023 Active amiodarone (CORDARONE) 200 mg tabletIndications:C hronic atrial fibrillation (HC) Take 1 Tablet (200 mg) by mouth once daily. 90 Tablet 11/20/2023 Active omeprazole (PRILOSEC) 40 mg Delayed-Release capsuleIndications: Chronic GERD Take 1 Capsule (40 mg) by mouth once daily before a meal. 180 Capsule 3 11/20/2023 Active magnesium oxide (MAG-OX 400) 400 mg tabletIndications:H ypomagnesemia Take 1 Tablet (400 mg) by mouth once daily. 90 Tablet 1 11/29/2023 Active furosemide (LASIX) 20 mg tablet Take 10 mg by mouth every morning. 10/12/2023 Active ondansetron (ZOFRAN) 8 mg tablet Take 8 mg by mouth every 8 hours if needed for Nausea/Vomiting. Active loperamide (Anti-Diarrheal) 2 mg capsule Take 2 mg by mouth each time if needed for Diarrhea. Take 2 capsules (4mg) orally with 1st loose stool, then 1 capsule (2mg) with other loose stools. Max 16 mg in 24 hrs. Active diphenoxylate-atrop ine, 2.5-0.025 mg, (LomotiL) 2.5-0.025 mg tablet Take 1 Tablet by mouth 4 times daily if needed for Diarrhea. Active acetaminophen (Tylenol Extra Strength) 500 mg tablet Take 500-1,000 mg by mouth every 6 hours if needed. Max acetaminophen dose: 4000mg in 24 hrs. Active OLANzapine (ZYPREXA) 2.5 mg tablet Take 2.5 mg by mouth at bedtime starting the night of chemo and continue for 3 days (for nausea) Active rx trimethoprim-sulfam ethoxazole, 160-800 mg, (BACTRIM DS, SEPTRA DS) tablet (ED DC MED)Indications:UTI (urinary tract infection), uncomplicated Take 1 Tablet by mouth two times daily for 7 days. 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 Atrial fibrillation 12/05/2023 Chronic heart failure with p reserved ejection fraction (HFpEF) 12/05/2023 Chemotherapy-induced neutropenia 11/19/2023 Acute congestive heart failu re, unspecified heart failure type 11/19/2023 Dyslipidemia 09/25/2019 Hypertension, benign essential, goal below 140/9 0 09/25/2019 Hearing aid worn 12/28/2017 Medicare annual wellness visit, subsequent 12/27 Screening mammogram, encounter for 12/27/2017 Postmenopausal 12/27/2017 Hyperlipidemia with target LDL less than 100 Aortic calcification 08/03/2017 Benign essential hypertension 03/27/2016 Gastroesophageal reflux disease 03/27/2016 Thyroid nodule Multinodular goiter Vitamin D deficiency Thyroiditis Overview: Euthyroid, not on medication. Resolved Problems Problem Noted Date Diagnosed Date Resolved Date Hyperlipidemia, unspecified 10/16/2016 12/27/2017 Encounters Date Type Department Care Team Description 03/07/2024 1:45 PM CDT Orders Only [facility] [address] [phone] Lab, E[facility] Lab 03/07/2024 Telephone [facility] [address] [phone] Roddy Andrews MD Results 03/07/2024 Travel 03/07/2024 Telephone [facility] [address] [phone] Grabiel Crawford MD ORDERS NEEDED 03/06/2024 Telephone [facility] [address] [phone] Grabiel Crawford MD Verbal orders; FYI regarding patient Falls 02/26/2024 Telephone [facility] [address] [phone] Grabiel Crawford MD 02/25/2024 Telephone [facility] [address] [phone] Grabiel Crawford MD Referral 01/15/2024 11:45 AM CDT Office Visit [facility] [address] [phone] Grabiel Crawford MD Follow Up (3 month f/u cancer) 01/15/2024 Travel 01/08/2024 Telephone [facility] [address] [phone] Grabiel Crawford MD RECERTIFCATION ORDERS 01/07/2024 Telephone [facility] [address] [place] [phone] Grabiel Crawford MD verbal orders 12/26/2023 Telephone [facility] [address] [place] [phone] Grabiel Crawford MD REGARDING ORDERS 12/20/2023 Patient Outreach [facility] Care Management - Advanced Care Team [address] [place] [address] Izabella Rea, brush polisher Management (Nurse outreach) 12/13/2023 Telephone [facility] [address] [place] [phone] Grabiel Crawford MD ALF, PT, AND OT 12/12/2023 Patient Outreach [facility] [address] [place] [phone] Grabiel Crawford MD Primary RN Care Management; Hospital F/U (D/C 12/11/2023; LACE 62) 12/05/2023 8:15 AM CHILD CARE PROVIDER - 12/11/2023 11:11 AM CHILD CARE PROVIDER Hospital Encounter [address] [address] Sophie Hilton MD Peritoneal carcinomatosis (HC) (Primary Dx) Discharge Disposition: Home Health from Last 3 Months Immunizations Name Administration Dates Next Due COVID-19 vaccine ([facility] 30mcg/0.3mL) P FMDV 03/16/2021,02/23/2021 Influenza, Inactivated IIV3 (Age 65+ Years) Preserv Free 11/12/2019 Pneumococcal conj 13-Valent (Prevnar 13) 016 Pneumococcal, Unspecified 03/01/2011 Tdap 03/01/2011 Tdap, Unspecified 03/01/2011 Zoster (Zostavax-ZVL, live) 09/02/2007 Family History Medical History Relation Name Comments Other Brother 1 Lung disease Good Health Daughter 1 Good Health Daughter 2 Good Health Daughter 3 Other Father heart attack Other Mother emphysema Other Sister 1 lung cancer Other Sister 2 heart attack Other Sister 3 Other Sister 4 Other Sister 5 Relation Name Status Comments Brother 1 Brother 2 Alive Brother 3 Alive Brother 4 Alive Daughter 1 Alive Daughter 2 Alive Daughter 3 Alive Father Grandchild x15 Alive Mother Sister 1 Sister 2 Alive Sister 3 Alive Sister 4 Sister 5 Alive Social History Tobacco Use Types Packs/Day Years Used Date Smoking Tobacco: Never Passive Smoke Exposure: Never Smokeless Tobacco: Never Tobacco Cessation:Counseling Given: No Alcohol Use Standard Drinks/Week Comments No 0 (1 standard drink = 0.6 oz pur e alcohol) PHQ-2 Answer Date Recorded PHQ-2 TOTAL SCORE 0 03/20/2023 Social Connections Answer Date Recorded Frequency of Communication with Friends and Fami ly 0 12/08/2023 Financial Resource Strain Answer Date R ecorded Difficulty of Paying Living Expenses 3 12/08/2023 Difficulty of Paying Living Expenses Not on file 12/08/2023 Food Insecurity Answer Date Recorded Worried About Running Out of Food in the Last Ye ar 1 12/08/2023 Transportation Needs Answer Date Record ed Lack of Transportation (Medical) 1 12/08/2023 Housing Stability Answer Date Recorded Unable to Pay for Housing in the Last Year 1 12/08/2023 Sex and Gender Information Value Date Recorded Sex Assigned at Not on file Gender Identity Not on file Sexual Orientation Not on file Obstetrics History Para Term AB IAB SAB Ectopic Multiple Livin g Live Births 3 Last Filed Vital Signs Vital Sign Reading Time Taken Comments Blood Pressure 102/54 01/15/2024 12:11 PM CDT Pulse 72 01/15/2024 12:11 PM CDT Temperature 37 ??C (98.6 ??F) 12/11/2023 8:15 AM CHILD CARE PROVIDER Respiratory Rate 16 12/11/2023 8:15 AM CHILD CARE PROVIDER Oxygen Saturation 97% 01/15/2024 12:11 PM CDT Inhaled Oxygen Concentration - - Weight 64 kg (141 lb) 01/15/2024 12:11 PM CDT Height 175.3 cm (5' 9) 01/15/2024 12:11 PM CDT Body Mass Index 20.82 01/15/2024 12:11 PM CDT Plan of Treatment Upcoming Encounters Date Type Department Care Team (Late st Contact Info) Description 04/16/2024 1:45 PM CDT Office Visit [facility] [address] [place] [phone] Grabiel Crawford MD [address] [address] Health Maintenance Due Date Last Done Comments Zoster (shingles) series for age 50+ (1 of 2) 10/28/2007 09/02/2007 Pneumococcal series for age 65+ (2 of 2 - PPSV23 or PCV20) 05/23/2016 03/28/2016, 03/01/2011 Tetanus booster 03/01/2021 03/01/2011, 03/01/2011 COVID-19 vaccine series (3 - Pfizer risk series) 04/13/2021 03/16/2021, 02/23/2021 Depression screening for age 12+ 03/20/2024 03/20/2023, 07/19/2021, 05/31/2021, Additional history exists Medicare Wellness for age 65+ 03/20/2024, 07/19/2021, 11/12/2019, Additional history exists Influenza for age 65+ 07/06/2024 11/12/2019 BMI (ht and wt on same day) for age 18+ 01/14/2025 01/15/2024, 11/19/2023, 10/11/2023, Additional history exists Tdap Completed 03/01/2011, 03/01/2011 Hepatitis C screening for ag e 18-79 Completed 11/12/2019 DEXA/DXA scan for age 65+ Completed 2020, 12/28/2017, 08/03/2014 ([facility]) Procedures Procedure Name Priority Date/Time Associated Diagnosis Comments URINALYSIS MICROSCOPIC Routine 03/07/2024 1:43 PM CDT Dysuria UA W/ SEDIMENT EXAM REFLEXED PER CRITERIA Routine 03/07/2024 1:43 PM CDT Dysuria CBC WITH AUTO DIFFERENTIAL Early AM 12/10/2023 5:20 AM CHILD CARE PROVIDER BASIC METABOLIC PANEL Early AM 12/10/2023 5:20 AM CHILD CARE PROVIDER CBC WITH AUTO DIFFERENTIAL Early AM 12/10/2023 5:20 AM CHILD CARE PROVIDER HEMOGLOBIN Early AM 12/09/2023 7:30 AM CHILD CARE PROVIDER XR DXA BONE DENSITY 2 SITES AXIAL Routine 12/03/2020 9:49 AM CHILD CARE PROVIDER Post-menopausal ANTI HCV Routine 11/12/2019 8:16 AM CHILD CARE PROVIDER Encounter for hepatitis C screening test for low risk patient from Last 3 Months or Most Recently Relevant to Health Maintenance Results * (ABNORMAL) URINALYSIS MICROSCOPIC (03/07/2024 1:43 PM CDT) RBC 0-2 0-2, None Seen /HPF 03/07/2024 2:04 PM CDT [facility] WBC 6-10(A) 0-2, 3-5, None Seen /HPF 03/07/2024 2:04 PM CDT [facility] BACTERIA Moderate(A) None Seen, Rare, Few Bacteria/ HPF 03/07/2024 2:04 PM CDT [facility] EPITHELIAL CELLS Few None Seen, Few Epi/HPF 03/07/2024 2:04 PM CDT [facility] Mucus Present 03/07/2024 2:04 PM CDT [facility] Urine URINE SPECIMEN / Unknown Non-Blood / Unknown 03/07/2024 1:43 PM CDT 03/07/2024 1:43 PM CDT Roddy Andrews MD URINE [facility] [address] [place] [address] * (ABNORMAL) UA W/ SEDIMENT EXAM REFLEXED PER CRITERIA (03/07/2024 1:43 PM CDT) COLOR Yellow Yellow Color 03/07/2024 2:02 PM CDT [facility] CLARITY Clear Clear Clarity 03/07/2024 2:02 PM CDT [facility] SPECIFIC GRAVITY,URINE 1.010 1.010, 1.015, 1.020, 1.025 03/07/2024 2:02 PM CDT [facility] PH,URINE 5.0(A) 6.0, 7.0, 8.0, 5.5, 6.5, 7.5, 8.5 03/07/2024 2:02 PM CDT [facility] UROBILINOGEN,QU ALITATIVE Normal Normal EU/dl 03/07/2024 2:02 PM T [facility] PROTEIN, URINE Negative Negative mg/dL 03/07/2024 2:02 PM T [facility] GLUCOSE, URINE Negative Negative mg/dL 03/07/2024 2:02 PM T [facility] KETONES,URINE 15(A) Negative mg/dL 03/07/2024 2:02 PM T [facility] BILIRUBIN,URINE Abnormal(A) Negative 03/07/20 2:02 PM T [facility] Comment:A variety of metabol ites and/or medications may result in a positive bilirubin result. Clinical correlation is recommended. OCCULT BLOOD,URINE Trace(A) Negative 03/07/2024 2:02 PM CDT [facility] NITRITE Negative Negative 03/07/2024 2:02 PM CDT [facility] LEUKOCYTE ESTERASE Negative Negative 03/07/2024 2:02 PM T [facility] Urine URINE SPECIMEN / Unknown Non-Blood / Unknown 03/07/2024 1:43 PM CDT 03/07/2024 1:43 PM CDT Roddy Andrews MD URINE [facility] [address] [place] [address] * (ABNORMAL) CBC WITH AUTO DIFFERENTIAL (12/10/2023 5:20 AM CHILD CARE PROVIDER) WHITE BLOOD COUNT 9.9 4.5 - 11.0 thou/cu mm 12/10/2023 8:03 AM CHILD CARE PROVIDER [facility] RED BLOOD COUNT 2.77(L) 4.00 - 5.20 mil/cu mm 12/10/2023 8:03 AM [facility] HEMOGLOBIN 8.5(L) 12.0 - 16.0 g/dL 12/10/2023 8:03 AM [facility] HEMATOCRIT 27.3(L) 33.0 - 51.0 % 12/10/2023 8:03 AM [facility] MCV 99 80 - 100 fL 12/10/2023 8:03 AM [facility] MCH 30.7 26.0 - 34.0 pg 12/10/2023 8:03 AM [facility] MCHC 31.1(L) 32.0 - 36.0 g/dL 12/10/2023 8:03 AM [facility] RDW 23.5(H) 11.5 - 15.5 % 12/10/2023 8:03 AM [facility] PLATELET COUNT 775(H) 140 - 440 thou/cu mm 12/10/2023 8:03 AM [facility] MPV 8.7 6.5 - 11.0 fL 12/10/2023 8:03 AM [facility] NRBC 0.0 % 12/10/2023 8:03 AM [facility] ABS NRBC 0.0 thou /cu mm 12/10/2023 8:03 AM [facility] % NEUT 72.5 % 12/10/2023 8:03 AM [facility] % LYMPH 9.4 % 12/10/2023 8:03 AM [facility] % MONO 10.3 % 12/10/2023 8:03 AM [facility] % EOS 6.2 % 12/10/2023 8:03 AM [facility] % BASO 1.0 % 12/10/2023 8:03 AM [facility] % IMMATURE GRAN (METAS,MYELOS,IL OS) 0.6 % 12/10/2023 8:03 AM [facility] ABSOLUTE NEUTROPHILS 7.2(H) 1.7 - 7.0 thou/cu mm 12/10/2023 8:03 AM [facility] ABSOLUTE LYMPHOCYTES 0.9 0.9 - 2.9 thou/cu mm 12/10/2023 8:03 AM [facility] ABSOLUTE MONOCYTES 1.0(H) <0.9 thou/cu mm 12/10/2023 8:03 AM [facility] ABSOLUTE EOSINOPHILS 0.6(H) <0.5 thou/cu mm 12/10/2023 8:03 AM [facility] ABSOLUTE BASOPHILS 0.1 <0.3 thou/cu mm 12/10/2023 8:03 AM [facility] ABSOLUTE IMMATURE GRANULOCYTES(MET ,MYELOS,PROS) 0.1 <0.3 thou/cu mm 12/10/2023 8:03 AM [facility] Blood BLOOD SPECIMEN / Unknown Venipuncture / Unknown 12/10/2023 5:20 AM [facility] 12/10/2023 5:53 AM [facility] Lazara Martínez MD HEMATOLOGY [facility] [address] [place] [address] [phone] [place] [address] * (ABNORMAL) BASIC METABOLIC PANEL (12/10/2023 5:20 AM [facility]) SODIUM 141 136 - 145 mmol/L 12/10/2023 6:20 AM [facility] POTASSIUM 3.9 3.5 - 5.1 mmol/L 12/10/2023 6:20 AM [facility] CHLORIDE 105 98 - 107 mmol/L 12/10/2023 6:20 AM [facility] CO2,TOTAL 28 22 - 29 mmol/L 12/10/2023 6:20 AM [facility] ANION GAP 8 5 - 18 12/10/2023 6:20 AM [facility] GLUCOSE 108(H) 70 - 99 mg/dL 12/10/2023 6:20 AM [facility] CALCIUM 8.4(L) 8.8 - 10.2 mg/dL 12/10/2023 6:20 AM [facility] BUN 14 8 - 23 mg/dL 12/10/2023 6:20 AM [facility] CREATININE 0.59 0.50 - 0.90 mg/dL 12/10/2023 6:20 AM [facility] BUN/CREAT RATIO 24(H) 10 - 20 6:20 AM [facility] eGFR >90 >90 mL/min/1.7 3m2 12/10/2023 6:20 AM CHILD CARE PROVIDER [facility] Comment:As of 2022, eG FR is calculated by the CKD-EPI creatinine equation without race adjustment. ??eGFR can be influenced by muscle mass, exercise, and diet. ??The reported eGFR is an estimation only and is only applicable if the renal function is stable. Blood BLOOD SPECIMEN / Unknown Venipuncture / Unknown 12/10/2023 5:20 AM CHILD CARE PROVIDER 12/10/2023 5:53 AM CHILD CARE PROVIDER Lazara Martínez MD CHEMISTRY Performing Organization Address [facility]/ZIP Co de Phone Number [facility] SENDOUT INTERNAL Z[phone] [place] [phone] * (ABNORMAL) HEMOGLOBIN (12/09/2023 7:30 AM CHILD CARE PROVIDER) [facility] HEMOGLOBIN 9.1(L) 12.0 - 16.0 g/dL 12/09/2023 7:39 AM CHILD CARE PROVIDER [facility] MCV 98 80 - 100 fL 12/09/2023 7:39 AM CHILD CARE PROVIDER [facility] Blood BLOOD SPECIMEN / Unknown Butterfly / Unknown 12/09/2023 7:30 AM CHILD CARE PROVIDER 12/09/2023 7:35 AM CHILD CARE PROVIDER Dhara NOBLE HEMATOLOGY Performing Organization Address [facility]/ZIP Co de Phone Number [facility] SEND[place] ZIP [phone] [place] [id number] * XR DXA BONE DENSITY 2 SITES AXIAL (12/03/2020 9:49 AM CHILD CARE PROVIDER) Anatomical Region Laterality Modality Spine, HIPS, HIPL, HIPR Computed Radiography 12/03/2020 10:1 5 AM CHILD CARE PROVIDER Impressions 12/04/2020 10:19 AM CHILD CARE PROVIDER ??T-score meets the World Health Organization (WHO) criteria for low bone density (osteopenia) at one or more measured sites. The risk of osteoporotic fracture increased approximately two-fold for each SD decrease in T-score. Marlen Wagner M.D. Body/Diagnostic Radiologist [email or web address] / ?? Narrative 12/04/2020 10:19 AM CHILD CARE PROVIDER EXAM DATE: ??12/03/2020 ? DATE: ?? 12/03/2020 Gender: ??Female ?? Current height: ??5'9-4 ?? Gender at : ??Female ?? Age: ??75 Weight: ??205 ??Tallest height: ??Same ?? Race/ethnicity White ? INDICATION: ??This is a 75-year-old female. Have you had x-ray tests with barium or any nuclear medicine tests within the last week? ??No. ?? Have had you a bone density test before? ??Location: ??Here. ??When: ??Unsure. Yes. ?? Did the test show osteopenia or osteoporosis? ??Yes. ?? Have you ever taken medication to treat osteoporosis? ??Yes, calcium. ??If so, when did you last take it? ??Yesterday. ?? Do you have a family history of Osteopenia or Osteoporosis: ??Not provided. Have you ever or are you currently taking any of the following medications? ??Not provided. - Glucocorticoids(Steroids) i.e. Prednisone, Dexamethasone, Hydrocortisone (for 3 months or longer) - Medication for breast cancer (Aromatase Inhibitors like Arimidex or Letrozole) - Estrogen therapies - Depo Provera ( Control) Have you ever had any of the following conditions? ??Not provided. (Rheumatoid arthritis, diabetes, kidney disease, Celiac disease, gastric bypass/banding, anorexia/bulimia, hyperparathyroidism (if yes, perform non-dominant forearm)) Do you currently smoke? ??No. ?? Or have you previously smoked? ??No. ?? Do you currently drink 3+ alcoholic drinks every day? ??No. ?? Have you had a fragility fracture (a fall from standing height) as an adult? ??Yes. Has your mother or father ever had a hip fracture from a fall? ??No. ?? Have you had any hip or lower spine surgery: ??Yes. ?? Other comments: ??Right hip replaced, right-handed. ?? TECHNIQUE: ??Dual-energy x-ray absorptiometry system (axial skeleton). ??The patient was scanned on a Hologic Horizon scanner. ?? FINDINGS: BMD T-Score Z-Score Lumbar Spine (L1 to L4) 0.914 g/cm2 -1.2 1.2 Left Hip Femoral Neck 0.826 g/cm2 -0.2 1.9 Left Total Hip ??0.860 g/cm2 -0.7 1.1 Left Radius 1/3 0.545 g/cm2 -0.6 1.8 WHO Criteria: Normal: T-score at or above -1 SD Osteopenia: T-score between -1.1 and -2.4 SD Osteoporosis: T-score at or below -2.5 SD COMPARISON: ??We are unable to do comparison to studies prior to 10/12/2020 due to new DXA equipment. 10-year Fracture Risk: LEFT HIP: ??Major Osteoporotic Fracture: ??7.9%, Hip Fracture: ??0.8% ?? Reported risk factors: ??US (), Neck BMD = 0.826, BMI = 29.4 RECOMMENDATIONS: ??Consider treatment if major osteoporotic fracture score is greater than or equal to 20%. Consider treatment if hip fracture score is greater than or equal to 3%. Tania Lisa MD DEXA * ANTI HCV (11/12/2019 8:16 AM CHILD CARE PROVIDER) HEPATITIS C ANTIBODY Non-React evan Non-React evan 11/12/2019 2:31 PM CHILD CARE PROVIDER [facility] Comment:Antibodies to HCV no t detected; does not exclude the possibility of exposure to HCV. Blood BLOOD SPECIMEN / Unknown Venipuncture / Unknown 11/12/2019 8:16 AM CHILD CARE PROVIDER 11/12/2019 8:16 AM CHILD CARE PROVIDER Tania Lisa MD SEND [facility]S [facility] [address] [place] [address], [place] from Last 3 Months or Most Recently Relevant to Health Maintenance Advance Directives * Full Code (Latest Code Status on File) Date Activated Date Inactivated Comments 12/05/2023 8:41 AM 12/06/2023 6:51 AM Question Answer Comments Code Status Discussion: Unable to Assess Preferences, Provider to review later * Full Code Date Activated Date Inactivated Comments 07/30/2023 7:29 PM 08/01/2023 6:18 PM Question Answer Comments Code Status Discussion: Reviewed Preferences Care Teams Administration Physician Relationship Specialty Start Date End Date Grabiel Crawford MD [address] [address] PCP - General Family Practice 03/01/21
--- OUTSIDE RECORDS SUMMARY | 2024-03-08 22:08 | XMS_ITS | Encounter Summary ---
Author Name Unknown Organization [facility] Address [address] [facility] [place] [address] Care Team Providers Care E Commerce Project Manager Name Role Phone Grabiel Crawford MD Primary Care Provider Encounter Details Date Type Department Care Team (Late st Contact Info) Description 08/24/2023 12:15 PM CDT Hospital Encounter [facility] [address] [phone] Social History Tobacco Use Types Packs/Day Years [...] 9:00 AM CDT Virtual Visit [facility] [address] [facility] [place] [phone] Daisy Valiente MD [address] [facility] [address] [place], [place] [phone] Chana Curran, GC [address] [facility] [address] 03/24/2024 8:50 AM CDT Office Visit [facility] [place] [address] [facility] [address] [phone] Roni Paredes MD [address] [facility] [place] [address] Ya Galdamez, CHILD DEVELOPMENT CONSULTANT [address] [facility] [address] [place] [id number] documented as of this encounter Visit Diagnoses Not on filedocumented in this encounter Additional Health Concerns Infection Onset Date Last Indicated Resolved Time Rule Out C-difficile 09/02/2023 09/02/2023 023 9:12 PM CDT documented as of this encounter Care Teams E Commerce Project Manager Relationship Specialty Start Date End Date Grabiel Crawford MD [address] [place] [address] PCP - General Family Medicine 08/13/23 documented as of this encounter
--- OUTSIDE RECORDS SUMMARY | 2024-03-08 22:08 | XMS_ITS | Encounter Summary ---
Author Name Unknown Organization [place] Address [address] [facility]. [address] Care Team Providers Care Centrifugal Wax Molder Name Role Phone Grabiel Crawford MD Primary Care Provider Lee Burns MD Unavailable Roni Paredes MD Unavailable Daisy Valiente MD Unavailable Encounter Details Date Type Department Care Team (Late st Contact Info) Description 11/23/2023 Orders Only [facility] [address] [place] [phone] [facility] [address] [place] [address] Anemia associated with chemotherapy (Primary Dx); Carcinoma of fallopian tube, right (H) Social History Tobacco Use Types Packs/Day [...] CDT Virtual Visit [facility] [address] [place] [phone] Daisy Valiente MD [address] [place] [address] [address] [place], [place] [address] Chana Curran, [address] [place], [place] [id number] 03/24/2024 8:50 AM CDT Office Visit [facility] [place] [address] [facility] [address] [place] [phone] Roni Paredes MD [address] [id number] Ya Galdamez, CLINICAL REIMBURSEMENT SPECIALIST [address] [place], [place] [address] documented as of this encounter Visit Diagnoses Diagnosis Anemia associated with chemotherapy- Primary 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 [place] [address] Assigned Heart and Vascular Provider 10/13/23 Daisy Valiente MD [address] [place] [address] Gynecologic Oncology 02/26/24 documented as of this encounter
--- OUTSIDE RECORDS SUMMARY | 2024-03-08 22:08 | XMS_ITS | Encounter Summary ---
Author Name Unknown Organization [place] Address [address] [facility] [place] [address] Care Team Providers Care Controls Project Engineer Name Role Phone Grabiel Crawford MD Primary Care Provider Lee Burns MD Unavailable Roni Paredes MD Unavailable Reason for Visit * Reason Onset Date Comments Medication Request 11/29/2023 magnesium oxi de (MAG-OX) 400 MG tablet - Provider doubled it but did not change the script Encounter Details Date Type Department Care Team (Late st Contact Info) Description 11/29/2023 Telephone [facility] [place] [id number] [facility] [address] [place] [phone] Roni Paredes MD [address] [facility] [address] [place] [address] Medication Request (magnesium oxide (MAG-OX) 400 MG tablet - Provider doubled it but did not change the script) Social History Tobacco Use Types Packs/Day Years [...] encounter Miscellaneous Notes * Telephone Encounter - Shante Nicole RN - 11/29/2023 1:53 PM SENIOR ACCOUNTING MANAGER I called pt back and let her know that wants her PCP to manage her magnesium levels long lines operator. I called her PCP clinic with an update back in October that pt's magnesium has been low and I do see a note where wants to recheck her lab. Pt said she is out of magnesium. Will send a temporary refill as did initially prescribe it and then pt will call PCP to get a longer refill and schedule her next magnesium lab. Jannet MEEHAN November 29, 2023, 1:55 PM OR ACCOUNTING MANAGER * Telephone Encounter - Wanda Headley - 11/29/2023 12:28 PM CST [facility] Call Center Phone Message May a detailed message be left on voicemail: yes Reason for Call: Medication Refill Request Has the patient contacted the pharmacy for the refill? Yes Name of medication being requested: magnesium oxide (MAG-OX) 400 MG tablet Provider who prescribed the medication: Dr. Paredes Pharmacy: [id number] - [place], [place] - [address] medication is needed: ELLEN - Pt states Dr. Paredes increased meds to 800 mg but did not change the script so pt is out of the meds. Please call pt back if she no longer needs to take the double dose or if she is supposed keep taking 800 mg. Also pt needs a new script. Pt did have labs drawn today at [facility] Oncology, Please call Natalya MEEHAN [phone] to confirm the results of the labs. Action Taken: Message routed to: [facility] cardio Travel Screening: Not Applicable Thank you! [facility] OR ACCOUNTING MANAGER documented in this encounter Plan of Treatment Upcoming Encounters Date Type Department Care Team (Late st Contact Info) Description 03/10/2024 9:00 AM CDT Virtual Visit [facility] [address] [place] [phone] Daisy Valiente MD [address] [facility] [address] [place], [place] [address] Chana Curran, [address] [place] [address] 03/24/2024 8:50 AM CDT Office Visit [facility] [address] [place] [facility] [address] [place] [phone] Roni Paredes MD [address] [facility] [address] [place], [place] [address] Ya Galdamez, SKILLS TRAINER [address] [place] [phone] documented as of this encounter Visit Diagnoses Diagnosis Acute congestive heart failure, unspecified heart failure type (H) Atrial fibrillation, unspecified type (H) documented in this encounter Care Teams Controls Project Engineer Relationship Specialty Start Date End Date Grabiel Crawford MD [address] [facility] [place] [id number] PCP - General Family Medicine 08/13/23 Lee Burns MD [address] [place] [address] Cardiovascular Disease 09/07/23 Roni Paredes MD [address] [place] [address] [place] [address] Assigned Heart and Vascular Provider 10/13/23 documented as of this encounter
--- OUTSIDE RECORDS SUMMARY | 2024-03-08 22:08 | XMS_ITS | Encounter Summary ---
Author Name Unknown Organization [place] Address [address] [facility] [place] [address] Care Team Providers Care Clinical Information Systems Director Name Role Phone Grbaiel Crawford MD Primary Care Provider Lee Burns MD Unavailable Roni Paredes MD Unavailable Reason for Visit * Diagnostic Imaging XR (Routine) - Pending Review Specialty Diagnoses / Procedures Referred By Contac t Referred To Contact Radiology. 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) Procedures XR Chest 2 Views Sophie Hilton MD [facility] [address] [place] [address] [address] [place] [address] Referral ID Status Reason Start Date Expiration Date V isits Requested Visits Authorized [id number] Pending Review 11/30/2023 11/29/2024 1 1 Encounter Details Date Type Department Care Team (Late st Contact Info) Description 12/03/2023 11:20 AM WIRE CHIEF Ancillary Procedure [facility] [address] [place] [phone] Sophie Hilton MD [facility] [address] [facility] [address] [place] [address] Pleural effusion, malignant (H28); 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) Social History Tobacco Use Types Packs/Day [...] Description 03/10/2024 9:00 AM CDT Virtual Visit [facility] [address] [place] [phone] Daisy Valiente MD [address] [place] [address] 88 [place], [place] [address] Chana Curran, [address] [place] [address] 03/24/2024 8:50 AM CDT Office Visit [facility] [place] [address] [facility] [address] [place] [phone] Roni Paredes MD [address] [facility] [address] [place], [place] [address] Ya Galdamez, INDUSTRIAL ECOLOGY TECHNICIAN [address] [place], [place] [phone] documented as of this encounter Procedures Procedure Name Priority Date/Time Associated Diagnosis Comments XR CHEST 2 VIEWS Routine 12/03/2023 11:2 0 AM WIRE CHIEF Pleural effusion, 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 Significantly smaller left pleural fluid that is now small in volume. Bibasilar opacities may be atelectasis. Airspace consolidation at the right lung base not excluded. Stable appearance of the right chest Port-A-Cath, somewhat redundant at the base of the right neck, its tip appearing stable at the upper to mid SVC. Normal cardiac silhouette. 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 COMPARISON: 10/03/2023. Procedure Note Kody Mckenna MD - 12/03/2023 EXAM: XR CHEST 2 VIEWS LOCATION: [facility] DATE: 12/03/2023 INDICATION: Pleural effusion, malignant (H28), Malignant neoplasm of rightfallopian tube (H). COMPARISON: 10/03/2023. IMPRESSION: Moderate right pleural fluid is larger in the interval.Significantly smaller left pleural fluid that is now small in volume.Bibasilar opacities may be atelectasis. Airspace consolidation at theright lung base not excluded. Stable appearance of the right chest Port-A-Cath, somewhat redundant at the baseof the right neck, its tip appearing stable at the upper to mid SVC.Normal cardiac silhouette. 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
[2024-03-08 22:13] LABS: C Reactive Protein* 23.7 mg/dL (0.5-1.0)
[2024-03-08] MEDS: cefTRIAXone 1 GM in 0.9 % SODIUM CHLORIDE Mini-bag 100 ML IVPB (23:15)
[2024-03-08 23:23] LABS: Appearance Urine Clear (Clear); Bilirubin Urine 2+ (Negative); Blood Urine Trace-intact (Negative); Color Urine Dark yellow (Yellow); Glucose Urine Negative (Negative); Ketones Urine 2+ (Negative); Leukocyte Esterase Urine Negative (Negative); Nitrite Urine Negative (Negative); Protein Urine Trace (Negative); Specific Gravity Urine 1.025 (1.000-1.030); Urobilinogen Urine 0.2 (0.2-1.0)
[2024-03-08 23:51] LABS: Bacteria Urine Few; RBC Urine 0-2 (0-2); Squamous Epithelial Cell Urine Moderate (None-Few); WBC Urine 0-2 (0-5)
[2024-03-09] VITALS (33 sets, daily range): BP systolic 94–146; BP diastolic 55–82; PULSE 70–81; RESP 16–20; TEMP 36.9–37.1; O2SAT 91–97
[2024-03-09] MEDS: 0.9 % SODIUM CHLORIDE 250 ml IV (03:24)
[2024-03-09] MEDS: HEPARIN 500 UNIT/5 ML SYRINGE IVF (05:13)
== END 2024-03-09 05:16 | disposition home or self-care (01) ==
PROVIDERS: Emergency Provider Family Medicine
DX: N30.00 Acute cystitis without hematuria (principal); D64.9 Anemia, unspecified; C56.3 Malignant neoplasm of bilateral ovaries
CPT/HCPCS: 36415; 36430; 51798; 80048; 81001; 83605; 85025; 86140; 86850; 86900; 86901; 86922; 87040; 87086; 96365; 99284; J0696; J1642; J7030; J7050; P9016